=== PATIENT | male | born 1965 | race Caucasian/White ===

== ENCOUNTER 2022-10-25 10:51 | Outpatient (CLI) | payer MEDICARE, MEDICAID, SELFPAY ==
--- NOTE | 2022-10-25 11:35 | XR_ITS ---
WS: [id number] EXAMINATION: XR hip RT 2-3V wo/w pel* [id number] REASON FOR EXAM: PAIN IN R HIP COMPARISON: None ORDER DATE: 10/25/2022 11:54 AM TECHNIQUE: Frontal internal/external rotation views of the right hip were obtained. The entire pelvis was not included in the [id number] X-RAY FINDINGS: There are no fractures or dislocations. Normal motion with internal/external rotation is present. Minor right acetabular degenerative changes. XR/XR hip RT 2-3V wo/w pel* [id number] IMPRESSION: 1. No fractures or dislocations of the right hip. 2. Normal motion with internal/external rotation.
--- NOTE | 2022-10-25 11:35 | XR_ITS ---
WS: [id number] EXAMINATION: XR lumbar spine f/e only [id number] L-SPINE : 3 views REASON FOR EXAM: FALL/LOW BACK PAIN COMPARISON: None available. ORDER DATE: 10/25/2022 11:54 AM FINDINGS: The lumbar vertebral column is evaluated in flexion and extension lateral views as well as neutral po sition.. In the lumbar vertebra, there is no evidence of disc narrowing. There is minor anterior fabiano tebral narrowing of L1 possibly compression fracture age indeterminate. Aortoiliac vascular calcifica tions are present. There is perhaps 2 mm of anterior subluxation of L4 on L5 on flexion which reduces in neutral and extension. XR/XR lumbar spine f/e only [id number] IMPRESSION: Possible age-indeterminate minor compression of the superior endplate of L1. Mi ld anterolisthesis of L4 on L5
--- NOTE | 2022-10-25 11:35 | XR_ITS ---
WS: [id number] EXAMINATION: XR knee RT 3V* [id number] REASON FOR EXAM: PAIN IN R KNEE COMPARISON: None available. ORDER DATE: 10/25/2022 11:54 AM FINDINGS: There are marginal osteophytes associated with the tibial spines, and patella with mild medial and pa tellofemoral compartment narrowing. There is no sign of any acute fracture or dislocation. There is h azy thickening and indistinct patellar tendon and prepatellar soft tissue possibly some increased flu id or edema. XR/XR knee RT 3V* [id number] IMPRESSION: MEDIAL AND PATELLOFEMORAL COMPARTMENT NARROWING WITH OSTEOARTHRITIC CHANGES. CANNOT RULE OUT MILD PREPATELLAR BURSITIS.
== END 2022-10-25 10:52 | disposition home or self-care (01) ==
LOC: RAD 11:07
PROVIDERS: PCP Nurse Practitioner; Visit Provider Nurse Practitioner
DX: M54.50 Low back pain, unspecified (principal); M25.551 Pain in right hip; M25.561 Pain in right knee; W19.XXXA Unspecified fall, initial encounter; M17.11 Unilateral primary osteoarthritis, right knee
CPT/HCPCS: 72120; 73502; 73562

== ENCOUNTER → 2022-11-30 11:55 | Outpatient (BNVA) | payer MEDICARE, SELFPAY | PROVIDERS: PCP Nurse Practitioner; Visit Provider Internal Medicine Cardiovascular Disease | DX: I25.10 Atherosclerotic heart disease of native coronary artery without angina pectoris (principal); J44.9 Chronic obstructive pulmonary disease, unspecified; J43.9 Emphysema, unspecified; I10 Essential (primary) hypertension; E78.00 Pure hypercholesterolemia, unspecified | CPT/HCPCS: 36415; 82785; 86003; 93005; 99204 ==

== ENCOUNTER 2023-01-04 06:50 | Outpatient (CLI) | payer MEDICARE, MEDICAID, SELFPAY ==
[2023-01-04 07:22] VITALS: PULSE 85; RESP 20; O2SAT 93
[2023-01-04] MEDS: albuterol 2.5 mg/3 mL Neb INHALATION (07:25)
[2023-01-04 07:27] VITALS: PULSE 88
== END 2023-01-04 06:51 | disposition home or self-care (01) ==
LOC: RT 06:52
PROVIDERS: PCP Nurse Practitioner; Visit Provider Internal Medicine Pulmonary Disease
DX: J44.9 Chronic obstructive pulmonary disease, unspecified (principal)
CPT/HCPCS: 94060; 94618; 94726; 94729; J7613

== ENCOUNTER → 2023-02-16 10:57 | Outpatient (BNVA) | payer MEDICARE, MEDICAID, SELFPAY | PROVIDERS: PCP Nurse Practitioner; Visit Provider Internal Medicine Pulmonary Disease | DX: J44.9 Chronic obstructive pulmonary disease, unspecified (principal); J82.83 Eosinophilic asthma; I25.10 Atherosclerotic heart disease of native coronary artery without angina pectoris; Z12.2 Encounter for screening for malignant neoplasm of respiratory organs; F17.210 Nicotine dependence, cigarettes, uncomplicated | CPT/HCPCS: 99214 ==

== ENCOUNTER → 2023-04-04 11:55 | Outpatient (BNVA) | payer MEDICARE, MEDICAID, SELFPAY | PROVIDERS: PCP Nurse Practitioner; Visit Provider Nurse Practitioner | DX: S69.91XA Unspecified injury of right wrist, hand and finger(s), initial encounter (principal); W23.0XXA Caught, crushed, jammed, or pinched between moving objects, initial encounter | CPT/HCPCS: 73130 ==

== ENCOUNTER → 2023-06-28 13:38 | Outpatient (BNVA) | payer MEDICARE, SELFPAY | PROVIDERS: PCP Nurse Practitioner; Referring Provider Nurse Practitioner; Visit Provider Student in an Organized Health Care Education/Training Program | DX: M25.561 Pain in right knee (principal); M25.562 Pain in left knee; M17.0 Bilateral primary osteoarthritis of knee | CPT/HCPCS: 73560; 73565; 99204 ==

== ENCOUNTER 2023-07-26 07:39 | Outpatient (CLI) | payer MEDICARE, SELFPAY ==
--- NOTE | 2023-07-26 08:00 | CT_ITS ---
WS: [id number] CT LEFT KNEE, NONCONTRAST RICHA TECHNIQUE: Noncontrast CT of the LEFT knee to include the LEFT hip and ankle. CLINICAL INFORMATION: M17.0 - Bilateral primary osteoarthritis of knee COMPARISON: None. DLP: 1022.[address] scans at [facility] use at least one of these dose optimization techniques: automated e xposure control; mA and/or kV adjustment per patient size (includes targeted exams where dose is matc hed to clinical indication); or iterative reconstruction. FINDINGS: Postoperative changes LEFT EMILY. Osteopenia. Advanced degenerative arthritis LEFT knee. Prepatellar so ft tissue edema. Vascular calcification. Trace suprapatellar effusion. IMPRESSION: Images obtained for preoperative purposes.
== END 2023-07-26 07:40 | disposition home or self-care (01) ==
LOC: RAD 07:40
PROVIDERS: PCP Nurse Practitioner; Visit Provider Student in an Organized Health Care Education/Training Program
DX: M17.0 Bilateral primary osteoarthritis of knee (principal); Z01.818 Encounter for other preprocedural examination
CPT/HCPCS: 73700; 99214

== ENCOUNTER 2023-08-13 09:26 | Observation (INO) | payer MEDICARE, SELFPAY ==
[2023-08-13] VITALS (13 sets, daily range): BP systolic 97–136; BP diastolic 47–76; PULSE 62–89; RESP 16–18; TEMP 36.2–36.9; O2SAT 94–98; BMI 26.3
[2023-08-13] MEDS: sodium chloride 0.9% 500 ML IV (06:20)
[2023-08-13] MEDS: acetaminophen 1,000 MG/100 ML PIGGYBACK 400 MG IV ×3 (06:20→19:10)
[2023-08-13] MEDS: ketorolac 30 mg/mL INJ IVP (06:20)
[2023-08-13 06:30] LABS: Basophils # 0.1 10^3/uL (0.0-0.1); Basophils % 1.2 %; Eosinophils # 0.5 10^3/uL (0.0-0.8); Hematocrit 42.6 % (37-53); Lymphocytes % 28.8 %; Mean Corpuscular HGB Conc 33.1 g/dL (30-55); Mean Corpuscular Hemoglobin 30.7 pg (27-33); Mean Corpuscular Volume 92.8 fl (82-101); Mean Platelet Volume 9.6 fL (7.4-10.4); Monocytes # 0.7 10^3/uL (0.2-0.9); Monocytes % 9.8 %; Neutrophils # 3.63 10^3/uL (1.8-7.7); Neutrophils % 52.8 %; Nucleated Red Blood Cells % 0 %; Platelet Count 182 10^3/cmm (157-399); Red Blood Count 4.59 10^6/uL (3.85-5.65); Red Cell Distribution Width 13.5 % (12.1-15.1); White Blood Count 6.87 10^3/uL (3.29-11.43)
--- NOTE | 2023-08-13 06:46 | P.ANESASSM_ITS ---
Pre-Anesthetic Assessment Height/Weight: Height 1.88 m Weight 92.986 kg O2 Del Method Room Air 08/13/23 06:02 Preop Diagnosis: Left Knee DJD Operation Date: 08/13/23 07:00 Proposed Procedures p [place] Robot Total Knee Arthroplasty(Left) - Roge Cadena DO Familial anesthetic complications: None Was Beta Janak taken within 24 hours: N/A Was Clonidine taken within 24 hours: N/A Last intake: Intake Last Liquid Date 08/12/23 Last Liquid Time 20:30 Last Solid Date 08/12/23 Last Solid Time 20:30 Social Tobacco and No alcohol Exam alert, oriented x 3, clear to auscultation bilaterally and regular rate & rhythm Airway Mallampati: Class III Dentition: full Pulmonary Chronic Obstructive Pulmonary Disease CV/HEM Coronary Artery Disease (denies any episodes of Chest pain,SOB,syncope) and Hypertension Metabolic Hyperlipidemia Anesthetic Plan ASA status: 3 Anesthesia: Regional (specify below) Other: spinal + adductor Risk of > 500 ml blood loss (7ml/kg in children): Yes, adequate IV access and fluids planned Medications/Allergies Home Medications Medication Instructions Recorded Confirmed Last Taken Type albuterol sulfate 90 mcg/actuation 2 puff inhalation Q6H PRN 11/30/22 08/13/23 08/12/23 History aerosol inhaler Shortness Of Breath aspirin 81 mg tablet,delayed 81 mg PO DAILY 11/30/22 08/10/23 08/08/23 History release (Adult Low Dose Aspirin) cholecalciferol (vitamin D3) 125 125 mcg PO DAILY 11/30/22 08/13/23 08/12/23 History mcg (5,000 unit) capsule losartan 25 mg tablet 25 mg PO DAILY 11/30/22 08/13/23 08/12/23 History rosuvastatin 20 mg tablet 20 mg PO DAILY 11/30/22 08/13/23 08/12/23 History montelukast 10 mg tablet 10 mg PO DAILY #30 tabs 12/02/22 08/13/23 08/12/23 Rx (Singulair) fluticasone fur. 200 mcg-umeclid 1 inh inhalation DAILY #60 ea 07/10/23 08/13/23 08/13/23 Rx 62.5 mcg-vilant 25 mcg inhalat.powder (Trelegy Ellipta) Allergies Allergy/AdvReac Type Severity Reaction Status Date / Time bupropion [From Wellbutrin] AdvReac Unknown ADR-Dizzine Verified 08/10/23 11:03 ss meperidine [From Demerol] AdvReac Unknown Unknown Verified 08/10/23 11:03 Current Medications Generic Name Dose Route Start Last Admin Trade Name Freq PRN Reason Stop Dose Admin Sodium Chloride 500 mls @ 500 mls/hr 08/13/23 05:50 08/13/23 06:20 Sodium Chloride 0.9% IV 08/13/23 06:49 500 mls/hr ONCE ONE Administration [facility] Anesthesia Medical History Hypercholesterolemia HTN (hypertension) Spinal stenosis COPD (chronic obstructive pulmonary disease) Surgical History S/P knee surgery (~1977) History of ankle surgery (~1977) S/P carpal tunnel release (~1999) History of elbow surgery (~2000) S/P hip replacement (~2016) S/P coronary angiogram (~2013) Family History Father Myocardial infarct Family/Other Cancer Maternal side of family Social History Smoking and tobacco/nicotine status: current every day tobacco/nicotine user cigarettes Packs smoked per day: 1 Years cigarettes smoked: 35 [ Other cigarette details: Was smoking 4ppd] Alcohol intake: current Alcohol intake frequency: holidays/special occasions only Data Anesthesia 08/13/23 06:20 08/13/23 06:13 Short CBC 08/13/23 Range/Units 06:20 WBC 6.87 (3.29-11.43) 10^3/uL Hgb 14.10 (11.27-16.99) g/dL Hct 42.6 (37-53) % MCV 92.8 (82-101) fl Plt Count 182 (157-399) 10^3/cmm Neut % (Auto) 52.8 % Neut # (Auto) 3.63 (1.8-7.7) 10^3/uL Cardiac Studies: 2 No Data to Display
[2023-08-13 06:50] LABS: Blood Urea Nitrogen 15 mg/dL (8-23); Calcium 8.8 mg/dL (8.5-10.5); Carbon Dioxide 23 mmol/L (22-29); Chloride 103 mmol/L (98-107); Creatinine Clr Calc Pharmacy 192.2542; Glomerular Filtration Rate 169.6 mL/min (90-130); Glucose 114 mg/dL (65-115); Osmolality Calculated 282 mOsm/kg (285-295); Sodium 135 mmol/L (136-145)
--- NOTE | 2023-08-13 06:52 | W.PM.OPSFHP ---
Same Day Surgery H&P Indication for Procedure/HPI DATE OF PROCEDURE: August 13, 2023 CHIEF COMPLAINT/INDICATIONFOR SURGICAL PROCEDURE: Left knee degenerative joint disease PREOP DIAGNOSIS: Left Knee DJD PLANNED PROCEDURE: Operation Date: 08/13/23 07:00 Proposed Procedures p [place] Robot Total Knee Arthroplasty(Left) - Roge Cadena DO Medications/Allergies* Home Medications Medication Instructions Recorded Confirmed Type albuterol sulfate 90 mcg/actuation 2 puff inhalation Q6H PRN 11/30/22 08/13/23 History aerosol inhaler Shortness Of Breath aspirin 81 mg tablet,delayed 81 mg PO DAILY 11/30/22 08/10/23 History release (Adult Low Dose Aspirin) cholecalciferol (vitamin D3) 125 125 mcg PO DAILY 11/30/22 08/13/23 History mcg (5,000 unit) capsule losartan 25 mg tablet 25 mg PO DAILY 11/30/22 08/13/23 History rosuvastatin 20 mg tablet 20 mg PO DAILY 11/30/22 08/13/23 History Allergies/Adverse Reactions Allergy/AdvReac Type Severity Reaction Status Date / Time bupropion [From Wellbutrin] AdvReac Unknown ADR-Dizzine Verified 08/10/23 11:03 ss meperidine [From Demerol] AdvReac Unknown Unknown Verified 08/10/23 11:03 Pertinent History/Comorbid Conditions* Medical History (Updated 07/26/23 @ 13:30 by BLANCA Reilly) Hypercholesterolemia HTN (hypertension) Spinal stenosis COPD (chronic obstructive pulmonary disease) Surgical History (Updated 12/04/22 @ 16:42 by Annabel Waterman MD) S/P knee surgery (~1977) History of ankle surgery (~1977) S/P carpal tunnel release (~1999) History of elbow surgery (~2000) S/P hip replacement (~2016) S/P coronary angiogram (~2013) Family History (Updated 11/30/22 @ 08:56 by Margareth Bass RN) Father Myocardial infarct Father Cancer Family/Other Maternal side of family Social History Smoking and tobacco/nicotine status: current every day tobacco/nicotine user cigarettes Packs smoked per day: 1 Years cigarettes smoked: 35 [ Other cigarette details: Was smoking 4ppd] Alcohol intake: current Alcohol intake frequency: holidays/special occasions only Pertinent Exam Findings alert, oriented x 3, operative site marked and procedure specific exam findings Left knee demonstrates roughly 10 degree varus deformity. Refer to previous office visit on 06/28/2023 which included: Left Knee Exam: ROM 5 to 115 degrees Patellar crepitus with ROM Medial joint line tenderness to palpation Lateral joint line tenderness to palpation Mild-moderate joint effusion Negative Tiffany's, but pain noted Negative Seven's 10 degrees of Varus malalignment, correctable on exam Stable Varus and Valgus stress Gross motor sensory intact Recommendations Surgery/Procedure today Other Plans: Plan to proceed with left total knee arthroplasty [place] robotic assisted. Patient's had no change in his health from previous visit he is clear the preoperative clearance process. He has had no recent injections into his knee within the last 90 days. At this point he understands the ins and outs procedure the risk benefits complication alternatives of surgery. Understands risk of surgery he elects to proceed all questions been answered at this time. Coding Level of Care Code Acute Code for Sunny Fwmyles
[2023-08-13 06:57] LABS: Anion Gap 13.8 (5-19); Potassium 4.8 mmol/L (3.5-5.1)
--- NOTE | 2023-08-13 07:04 | ANES.PROC ---
Anesthesia Procedures Procedure/Date: 08/13/23 Nerve Block ^: Nerve Block 1: Main Anesthesia: spinal anesthesia block Time Out Performed: Yes Consent: requested by attending/covering physician, from patient, from other, risks and benefits reviewed and patient agrees to proceed Nerve block location: adductor canal (L) Anesthesia monitors applied: pulse oximetry, EKG and BP cuff Nerve block position: supine Anesthetic Used: ropivicaine 0.5% (30 ml) and with decadron (4 mg) Ultrasound used to: recognize landmarks and visualize and ID femerol nerve Nerve Stimulator Used?: No Interscalene/Femoral BLK: 4 stimuplex 21 g needle used for position and inplane approach, visualize local anesthetic spread and no vascular puncture identified Injection: neg aspiration of heme Patient Tolerated Procedure: well Complications: none
[2023-08-13] MEDS: ceFAZolin 2,000 MG in sodium chloride 0.9% (plus) 50 ML 100 MG IV ×3 (07:07→22:33)
--- NOTE | 2023-08-13 07:13 | XRR_ITS ---
PROCEDURE INFORMATION: Exam: XR Left Knee Exam date and time: 08/13/2023 8:51 AM Age: 58 years old Clinical indication: Device placement; Joint replacement hardware; Prior surgery; Surgery date: Post-operative (0-2 days); Surgery type: L tka; Additional info: Post L tka, do in pacu TECHNIQUE: Imaging protocol: Radiologic exam of the left knee. Views: 1 or 2 views. COMPARISON: 1. CT knee LT RICHA [id number] 07/26/2023 8:11 AM 2. CR XR knees AP WB w BI lmt ORTH 06/28/2023 1:40 PM FINDINGS: Bones/joints: Interval left knee arthroplasty. No additional displaced fracture nor dislocation seen. Soft tissues: Gas densities about knee. Vasculature: Vascular/arterial calcifications. XR/XR knee LT 1-2V [id number] IMPRESSION: Post left knee arthroplasty.
[2023-08-13] MEDS: tranexamic acid 1,000 mg/10mL SDV 1000 MG IV (07:25)
[2023-08-13] MEDS: tranexamic acid 1,000 mg/10mL SDV 1000 MG XX (08:01)
[2023-08-13] MEDS: ROPivacaine 0.2% Premix 100 mL 200 MG INTRA-ARTI (08:01)
[2023-08-13] MEDS: EPINEPHrine 1 mg/mL INJ XX (08:02)
[2023-08-13] MEDS: ketorolac 30 mg/mL INJ XX (08:02)
[2023-08-13] MEDS: vancomycin 1,000 MG SDV 1000 MG XX (08:03)
--- NOTE | 2023-08-13 09:33 | W.PM.BPON ---
Date of Procedure: 08/13/2023 Surgeon: Roge Cadena DO [place] Operator(s): LEDY Aguilar Procedure(s) performed: Left total knee arthroplasty?[place] robotic assisted Findings of the procedure(s): Left knee severe degenerative joint disease underwent left total knee arthroplasty without any issues or complications Estimated blood loss: 20 mL Specimen(s) removed: Tibia femur and patellar bone cuts removed Post-operative diagnosis: Left knee degenerative joint disease
--- NOTE | 2023-08-13 09:34 | PM.OP ---
Operative Report Date of procedure: August 13, 2023 Surgeon: Roge Cadena DO Sld Educational Aide: LEDY Aguilar Procedure: Preoperative diagnosis: Left knee degenerative joint disease Post-op diagnosis: Same Procedure done: Left total knee arthroplasty, cemented?robotic assisted [place] Implants: [place] triathlon size 7 femur CR cemented?left [place] triathlon size? 7 tibia universal baseplate cemented [place] triathlon asymmetric patella size 38 mm [place] triathlon polyethylene 9mm Surgeon: Roge Cadena DO Estimated blood?loss: 20 mL Tourniquet 73minutes IV fluids: 1200 mL Urine output: 600 mL Complications: None Condition: stable Disposition: floor Brief History: Patient is a 58-year-old male with with chronic?left knee degenerative joint disease.? Patient has been worked up in the outpatient setting in the orthopedic office at this point time through shared decision making given? [id number] arthritis as well as failed conservative treatment, and pt would?like to proceed with a?left total knee arthroplasty.? Through shared decision making elected to proceed with surgical intervention for?left total knee arthroplasty.? We talked about continued conservative treatment and surgical intervention as far as the risk benefits complications alternatives surgical and nonsurgical treatment options.? At this point time understanding patient risks with surgery he agrees to proceed with surgical intervention.? Once again? risk with surgery include but are not?limited to make it better make it worse blood clot, heart attack, stroke, on the table, infection, injury to nerves or vessels, persistent pain, arthrofibrosis, implant failure.? Understanding these risks patient agrees to proceed with surgical intervention consent was obtained in the office.? All questions answered. Procedure: Patient was seen and evaluated in the preoperative holding area.? Consent was reviewed and signed with patient with plan for?left total knee arthroplasty.? All questions answered.? Correct extremity marked.? Patient seen and evaluated by the anesthesia department and once cleared for surgery was taken back to the operative suite.? Patient was placed into a supine position on the OR table.? All bony prominences were well-padded.? Patient was appropriately secured to the bed.? Patient underwent anesthesia per the anesthesia department.? Patient received spinal anesthesia and? Cai catheter was placed.? A nonsterile tourniquet was applied to the?left thigh.? At this point in time a final timeout performed.? Patient received appropriate preoperative antibiotics and TXA. Next the?left?lower extremity was then prepped and draped in standard orthopedic fashion. Esmarch tourniquet was used exsanguinate the?left?lower extremity.? Tourniquet was insufflated to 250 mmHg. A patient had a previous medial curved incision over the patella from a previous surgery back in 1977. As result incorporated this previous incision and curved this to a anterior midline incision both proximally and distally created full-thickness skin flaps. Sharp scalpel excision through skin and subcutaneous tissue full-thickness skin flaps were made.? Fascia was elevated off of the extensor retinaculum was stable with medial parapatellar arthrotomy was then made.? The performed standard sequential releases..? Immediately on entry into the joint patient was found to have severe eburnated bone and tricompartmental arthritic changes noted.? With significant osteophyte formation.? Next the the patella was then stuffed and the knee was then flexed.?? Neil was placed superiorly around the anterior aspect of the femur this was freed of synovium and I subsequently then placed by 2 femur pins to establish my femur arrays for the [place] robot.? These were then placed bicortically and? femur array was then appropriately secured with appropriate visualization.? Next attention was turned towards the tibial rays.? These were then drilled sequentially bicortically in parallel fashion and intraincisional.? I then placed my guide as well as my tibial array on in place.? This was appropriately secured and had excellent visualization with the [place] robot.? Next the tibial checkpoint as well as femur checkpoint were then placed.? At this point time I then subsequently established my head center as well as my medial?lateral malleoli as well as my checkpoints.? Next utilizing standard [place] technology I then mapped out the appropriate points and confirmation points around the femur as well as the tibia in standard fashion.? Once this was then done I then removed all osteophytes in preparation for dynamic testing.? All osteophytes were removed as well as I removed the ACL and the PCL was excised due to its significant tearing and degeneration noted.? At this point time the knee was brought into full extension and we performed our standard evaluation of our gap balancing stressing his?ligaments and extension as well as flexion appropriate adjustments were made to have appropriate gap balancing in both flexion and extension.? This plan for final counts.? We get a preoperative plan evaluating our implants which was a size 7 femur and a size 7 tibia.? Next we brought in the [place] robot and sequentially made our femur cuts.? All excess bony cuts were then removed.? Finally we made our tibial cut.? Once this was done a standard PCL retractor was then placed into this position I excised the medial and?lateral meniscus.? The tibial cut was then subsequently removed all excess bony debris was removed.? I then utilized a?lamina missile facilities repairer and remove the posterior osteophytes.? At this point time sized the tibia and confirmed this was a size 7.? I utilized our blunt probe to establish rotation of tibial implant.? Once this was done I then placed my tibia size 7 trial in appropriate position and then subsequently placed tibial pins to hold this into place placed a size 9 mm poly as well as a size 7 femur which was appropriately impacted in place knee was then subsequently brought into extension. Trials were then assessed,? this was stable with varus valgus stress in extension as well as had symmetrical translation when brought into flexion demonstrating symmetrical gaps. I had excellent balance gaps in flexion and extension with varus and valgus stresses.? Patient was slightly tight medially and as result did a 18-gauge small fenestration of the MCL to allow for no increased loading pressure medially and this created excellent balance both medially and laterally. He was able to achieve full extension and greater than 120 on his range of motion. At this point I was satisfied with these implants these were then verified and opened on the back table size 7 tibia, size 7 femur,? size 9 mm polythickness.? We did confirm appropriate gap balancing and stresses as well as alignment utilizing? [place] and were satisfied with this plan.? ?At this point time with my trials in place I then towel clip the patella everted this made appropriate measurements subsequently utilizing freehand technique performed by patellar resurfacing this was confirmed to be appropriate resection and subsequently sized to be a 38mm asymmetric.? My drill peg guides were then clamped and appropriate position and appropriate position in the patella for appropriate tracking and parallel with the joint.? Pegs were drilled trial implant was placed and the knee was then subsequently ranged and found to have excellent patellar tracking.? Femur pegs were then drilled.? Satisfied with our tibial placement rotation I then utilized the keel punch and prepped the tibia.? At this point time all of our trial implants were removed.? All checkpoints as well as guidepins and arrays were removed and appropriate counts made.? The wound bed? was thoroughly irrigated and dried and prepped for cementation.? Cement was mixed on the back table.? Once cement was ready this was then covered onto the tibia and the tibial baseplate was then impacted and all excess cement was removed.? Next the polyethylene was then impacted into place on the tibial baseplate.? Next cement was placed onto the femur as well as under the femur implants and impacted in to place and all excess cement was extruded and removed.? Knee was taken into full extension? to clear all excess cement was removed.? Warm saline was placed over the joint.? I then towel clip patella and dried for cementation. cemented the patella into place.? This was all clamped and the cement was allowed to cure.? Thorough irrigation performed with pulse?lavage.? I then placed my periarticular injection while the cement was curing.? Once cured the knee was taken through range of motion and had excellent stability and gaps were balanced in flexion and extension.? Tourniquet was then deflated. hemostasis satisfactory with electrocautery.? Next I then subsequently closed the capsule with Ethibond suture as well as a running strata fix suture.? Knee was then taken through range of motion.? Next the skin was then closed in?layered fashion of running stratifix sutures of deep and subcutenous tissue and skin.? ?closed in flexion and Prineo glue was then placed over the incision this allowed to cure.? Incision was covered with юлия, with ABDs soft roll and Patricio wrap.? Patient was then awakened from anesthesia and taken to PACU in stable condition. Disposition: Patient taken to PACU in stable condition will be admitted to the floor for pain control PT/OT weight-bear as tolerated?left?lower extremity dressing changes as needed, DVT prophylaxis. Pain control. Patient will receive appropriate postoperative antibiotics. patient will be seen today by the internal medicine team for medical management.? Patient will follow up with the office in 2 weeks.? Patient understands agrees with current plan.? All questions answered.
--- NOTE | 2023-08-13 10:05 | PM.PACU ---
PACU note Narrative: Patient seen and examined in PACU was taken to PACU in stable condition recovering well spinal anesthesia still on affect unable assess motor or sensory secondary to spinal anesthesia. His compartments are soft compressible dressings on in place clean dry and intact he has distal pulses palpable 2+. Toes warm well-perfused brisk capillary refill less than 2 seconds Exam: awake Disposition: admitted
--- NOTE | 2023-08-13 10:30 | ANE.PACU2 ---
Inpatient post-anesthesia follow up: Airway intact: Yes Vital signs: Temperature 97.5 F Pulse Rate 63 Respiratory Rate 16 Blood Pressure 116/68 Pulse Oximetry 95 Oxygen Delivery Me thod Room Air Oxygen Flow Rate 6 Fraction of Inspir ed Oxygen Hydration adequate: Yes Nausea and vomiting: No Pain level: 1 Mental status: Baseline
[2023-08-13] MEDS: multivitamin therapeutic Tablet 1 TAB PO (11:52)
[2023-08-13] MEDS: iron polysaccharide complex 150 mg Capsule PO ×2 (11:52→17:13)
[2023-08-13] MEDS: chlorhexidine gluconate 0.12% Btl 473 mL 30 ML MUCOUS MEM ×4 (11:52→20:29)
[2023-08-13] MEDS: aspirin 325 mg EC Tablet PO ×2 (11:52→17:12)
[2023-08-13] MEDS: calcium carb-vit d 600mg/400unit 1 Tablet 1 EACH PO ×2 (11:52→17:12)
[2023-08-13] MEDS: docusate sodium 100 mg Capsule PO ×2 (11:52→17:12)
[2023-08-13] MEDS: mupirocin oint 22 gm 1 APPLIC NASAL ×2 (11:52→17:13)
[2023-08-13] MEDS: lactated ringers 1,000 ML 100 ML IV ×2 (12:30→20:29)
[2023-08-13] MEDS: tranexamic acid 1,000 MG/100 ML PREMIX 600 MG IV (14:51)
[2023-08-13] MEDS: TRAMadol 50 mg Tablet PO (14:51)
[2023-08-14 00:16] VITALS: BP 128/68; PULSE 83; RESP 17; TEMP 36.6; O2SAT 94
[2023-08-14] MEDS: TRAMadol 50 mg Tablet PO ×3 (01:38→13:11)
[2023-08-14] MEDS: acetaminophen 1,000 MG/100 ML PIGGYBACK 400 MG IV (02:02)
[2023-08-14 04:34] VITALS: BP 138/84; PULSE 94; RESP 18; TEMP 36.6; O2SAT 95
[2023-08-14 05:20] LABS: Basophils % 0.3 %; Eosinophils # 0.2 10^3/uL (0.0-0.8); Eosinophils % 1.4 %; Hematocrit 34.8 % (37-53); Lymphocytes # 2.5 10^3/uL (0.8-4.8); Lymphocytes % 16.7 %; Mean Corpuscular HGB Conc 32.8 g/dL (30-55); Mean Corpuscular Hemoglobin 30.6 pg (27-33); Mean Corpuscular Volume 93.3 fl (82-101); Monocytes # 1.5 10^3/uL (0.2-0.9); Monocytes % 10.1 %; Neutrophils # 10.54 10^3/uL (1.8-7.7); Neutrophils % 70.9 %; Nucleated Red Blood Cells % 0 %; Platelet Count 169 10^3/cmm (157-399); Red Blood Count 3.73 10^6/uL (3.85-5.65); Red Cell Distribution Width 13.2 % (12.1-15.1); White Blood Count 14.87 10^3/uL (3.29-11.43)
[2023-08-14 05:46] LABS: Anion Gap 13.2 (5-19); Blood Urea Nitrogen 14 mg/dL (8-23); Calcium 8.6 mg/dL (8.5-10.5); Carbon Dioxide 24 mmol/L (22-29); Chloride 106 mmol/L (98-107); Creatinine Clr Calc Pharmacy 159.3052; Glomerular Filtration Rate 137.4 mL/min (90-130); Glucose 112 mg/dL (65-115); Osmolality Calculated 289 mOsm/kg (285-295); Potassium 4.2 mmol/L (3.5-5.1); Sodium 139 mmol/L (136-145)
[2023-08-14] MEDS: lactated ringers 1,000 ML 100 ML IV (06:09)
[2023-08-14] MEDS: ceFAZolin 2,000 MG in sodium chloride 0.9% (plus) 50 ML 100 MG IV (06:09)
[2023-08-14 07:41] VITALS: BP 141/74; PULSE 91; RESP 17; TEMP 36.4; O2SAT 97
[2023-08-14] MEDS: iron polysaccharide complex 150 mg Capsule PO (07:45)
[2023-08-14] MEDS: calcium carb-vit d 600mg/400unit 1 Tablet 1 EACH PO (07:45)
[2023-08-14] MEDS: multivitamin therapeutic Tablet 1 TAB PO (07:45)
[2023-08-14] MEDS: aspirin 325 mg EC Tablet PO (07:45)
[2023-08-14] MEDS: docusate sodium 100 mg Capsule PO (07:45)
[2023-08-14] MEDS: chlorhexidine gluconate 0.12% Btl 473 mL 30 ML MUCOUS MEM (07:46)
[2023-08-14] MEDS: mupirocin oint 22 gm 1 APPLIC NASAL (07:46)
--- NOTE | 2023-08-14 08:59 | PC.CHAP ---
Pastoral Care Encounter/Spiritual Assessment Type of Contact [] Declined contact center specialist visit [] Patient/Family/Request visit [] Outpatient visit [] Follow-up visit [] Physician referral [] Code/Alert [] Routine visit [] Staff referral [] Actively dying [] Patient sleeping [] Family support [] [] Out of room [] Palliative care [] [x] Receiving care in room [] Pre-surgical visit [] Trauma [] Long length of stay [] ICU visit [] Other: Relational/Emotional Strength [] Patient feels connected with others/family/visitors/staff [] Distress [] Loneliness/isolation [] Abandonment Spirituality of Patient [] Person of Elaine [] Attends Holiness of their Elaine [] Believes in Prayer [] Reads Bible or Mormonism materials [] There are Spiritual issues to be addressed Rn Procedure Interventions [] Prayer [] Active listening [] Non-anxious presence [] Spiritual/emotional support [] Crisis/trauma care [] Spiritual counseling [] Bereavement support [] Provided bereavement packet [] Provided Bible/devotional materials [] Provided toy/stuffed animal, coloring book to patient or family member [] Provided Communion [] Anointing/[place] [] Salvation [] Completed spiritual assessment [] Other: Impact on Illness or Injury [] Angry [] Fearful [] Anxious [] Often cries [] Exhaustion [] Unable to work [] Unable to attend uatsdin [] Unable to walk/stand [] Unable to read [] Unable to drive [] Unable to eat/drink [] Unable to sleep [] Unable to be with family [] Patient intubated [] Other: Summary Time spent with patient
[2023-08-14 10:37] VITALS: PULSE 97; O2SAT 93
[2023-08-14 11:21] VITALS: BP 144/65; PULSE 72; RESP 16; TEMP 36.3; O2SAT 94
[2023-08-14 14:08] VITALS: BP 144/65; PULSE 72; RESP 16; TEMP 36.3; O2SAT 94
== END 2023-08-14 14:09 | disposition home or self-care (01) ==
LOC: MEDSURG 09:26
PROVIDERS: Admitting Provider Student in an Organized Health Care Education/Training Program; PCP Nurse Practitioner; Visit Provider Student in an Organized Health Care Education/Training Program
PROC: 8E0Y0CZ Robotic Assisted Procedure of Lower Extremity, Open Approach (ICD-10-PCS; CPT 27447; principal; 2023-08-13 07:00)
DX: M17.12 Unilateral primary osteoarthritis, left knee (principal); J44.9 Chronic obstructive pulmonary disease, unspecified; I25.10 Atherosclerotic heart disease of native coronary artery without angina pectoris; I10 Essential (primary) hypertension; E78.5 Hyperlipidemia, unspecified; Z79.82 Long term (current) use of aspirin; F17.210 Nicotine dependence, cigarettes, uncomplicated
CPT/HCPCS: 20985; 27447; 36415; 51702; 73560; 80048; 85025; 86850; 86900; 97110; 97116; 97161; 97165; C1776; G0378; J0131; J0171; J0690; J1100; J1885; J2371; J2704; J2795; J3370; J7040; J7120

== ENCOUNTER 2023-08-14 14:07 | Outpatient (CLI) | payer MEDICARE, SELFPAY ==
--- NOTE | 2023-08-14 14:30 | CT_ITS ---
WS: [id number] LDCT LUNG CANCER SCREENING HISTORY: follow up imaging TECHNIQUE: Axial imaging performed from the apices to 1 cm below the costophrenic angles. Coronal and sagittal reformats are submitted with axial MIP series. All CT scans at [facility] use at least one of these dose optimization techniques: automated exposure control; mA and/or kV adjustment per patient size (includes targeted exams where dose is matched to clinical indication); or iterativ e reconstruction. DLP: 80.51 mGy.cm DIvol: Mean CTDIvol: 1.60 (mGy) COMPARISON: None available. Diagnostic quality: Satisfactory Lungs: Lungs are hyperexpanded. Numerous centrilobular emphysematous nodules are identified. There is numerous benign healed granulomas. Mild dependent changes posteriorly. No mass or nodule. Heart: Normal size heart with no pericardial effusion.. Moderate coronary artery calcifications. Other findings: Atherosclerotic plaque within the thoracic aorta. Normal size pulmonary artery. No ad renal mass. IMPRESSION: CT/CT lung screening [id number] LUNG-RADS: 1-Negative FOLLOW UP: 12 Month: Continue annual screening with LDCT OTHER FINDINGS (S MODIFIER): None.
== END 2023-08-14 14:08 | disposition home or self-care (01) ==
LOC: RAD 14:07
PROVIDERS: PCP Nurse Practitioner; Visit Provider Internal Medicine Pulmonary Disease
DX: J44.9 Chronic obstructive pulmonary disease, unspecified (principal); Z12.2 Encounter for screening for malignant neoplasm of respiratory organs
CPT/HCPCS: 71271

== ENCOUNTER → 2023-09-04 07:41 | Outpatient (BNVA) | payer MEDICARE, SELFPAY | PROVIDERS: PCP Nurse Practitioner; Visit Provider Physician Assistant | DX: Z96.652 Presence of left artificial knee joint (principal) | CPT/HCPCS: 73560; 73565; 99024 ==

== ENCOUNTER 2023-10-02 14:11 | Emergency (ER) | payer MEDICARE, SELFPAY ==
--- NOTE | 2023-10-02 14:14 | ECG_ITS ---
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 Measurements Intervals [place] Rate: 94 P: 75 SC: 154 QRS: 78 QRSD: 82 T: 79 QT: 349 QTc: 438 Interpretive Statements SINUS RHYTHM Compared to ECG 11/30/2022 12:02:52 No significant changes Electronically Signed On 10-02-2023 16:48:15 CDT by Chet Cage M.D. [email or web address]/[id number] f
[2023-10-02 14:16] VITALS: BP 139/80; PULSE 96; RESP 18; TEMP 36.9; O2SAT 96; BMI 24.7
--- NOTE | 2023-10-02 14:42 | XR_ITS ---
WS: [id number] Exam: XR chest 1V portable [id number] Date/Time of Exam: 10/02/2023 2:44 PM Reason For Exam: sob No priors. The lungs are fully expanded and clear. Normal cardiomediastinal silhouette and regional bony element s. Several calcified granulomas noted in both lung mcknight. XR/XR chest 1V portable [id number] IMPRESSION: 1. No acute cardiopulmonary finding.
--- NOTE | 2023-10-02 14:44 | ED_ITS ---
HPI - Weakness 2 General: Chief complaint: Weakness Stated complaint: Heart issues--sent by PCP Time Seen by Provider: 10/02/23 14:25 Source: patient Mode of arrival: ambulatory Limitations: no limitations History of Present Illness: Patient is a nice 58-year-old male who presents to ED today at the request of his primary care provider for further evaluation of symptoms over the past few days. Patient states on Sunday (4 days ago) he states he woke up not feeling well . Patient states he cannot really elaborate on specific symptoms other than I just did not feel good . 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 He states the following day he still did not feel improved. He reported nausea and chills stating he was covered up in blankets with his dog on his lap and still freezing. He never had any vomiting or documented fevers. No abdominal pains. Patient states he tried to do manual labor Sunday and Sunday morning but after 2 hours or so he felt weak and dizzy thus stayed inside and rested. He states he slept most of the day yesterday. Patient does have COPD and continues to smoke daily. He states he has felt more so short of breath and has used his inhalers over the past 3 days more than usual. Patient is status post knee replacement by Dr. Cadena approximately 3 to 4 weeks ago. He states he feels like his knee has been recovering well since surgery. Patient states his PCP was concerned that his symptoms could be related to his heart. He has reportedly had previous angiograms and echocardiograms as well as stress test that were reportedly normal. Patient has never had any chest pain or palpitations over the past several days. No syncopal episodes. He denies lower extremity swelling or weight gain. No muscle cramping or reported muscle weakness. MD Complaint: lack of energy Onset (ago): day(s) Duration: constant Location: generalized Migration: none Severity: moderate Relieving factors: none Exacerbating factors: exertion Associated symptoms: Reports chills and nausea; Denies chest pain, dysuria, fever(s), headache(s), syncope or vomiting Review of Systems 2 Const: Reports: chills, fatigue and malaise; Denies: fever(s) Eyes: Denies: change in vision, blurry vision or photophobia Card: Reports: dyspnea on exertion; Denies: chest pain, palpitations, irregular heart rhythm, edema, swelling of feet/ankles, lightheadedness, syncope, pre-syncope, orthopnea, leg pain with exertion or acrocyanosis Resp: Reports: dyspnea; Denies: productive cough, wheezing, pain on inspiration or hemoptysis GI: Reports: nausea; Denies: abdominal pain, vomiting, heartburn or diarrhea : Denies: flank pain, difficulty urinating or dysuria Musc: Denies: neck pain, back pain, extremity pain, extremity swelling or joint pain Skin/Breast: Denies: rash Neuro: Reports: dizziness; Denies: headache(s), numbness in extremities, weakness in extremities, sensory changes, lack of coordination, difficulty walking, frequent falls, vertigo, behavioral changes, Slurred speech present, difficulty communicating thoughts or seizure-like activity PFSH ED 2 PFSH: Medical History Hypercholesterolemia HTN (hypertension) Spinal stenosis COPD (chronic obstructive pulmonary disease) Surgical History S/P knee surgery (~1977) History of ankle surgery (~1977) S/P carpal tunnel release (~1999) History of elbow surgery (~2000) S/P hip replacement (~2016) S/P coronary angiogram (~2013) Family History Father Myocardial infarct Family/Other Cancer Maternal side of family Social History Smoking and tobacco/nicotine status: current every day tobacco/nicotine user cigarettes Packs smoked per day: 1 Years cigarettes smoked: 35 [ Other cigarette details: Was smoking 4ppd] Alcohol intake: current Alcohol intake frequency: holidays/special occasions only Physical Exam 2 Const: COMMON NORMALS: no acute distress, average body habitus, patient oriented x3, no limitations, healthy appearing, alert and well nourished O RIENTATION/CONSCIOUSNESS: Yes awake, Yes oriented to person, Yes oriented to place and Yes oriented to time OTHER: pt appears slightly winded during speaking/obtaining history HENMT: COMMON NORMALS: normocephalic and atraumatic HEAD & SCALP: normal to inspection, normocephalic and atraumatic FACE & SINUS: normal facial exam Eye: GENERAL EYE: appearance normal, both eyes and all related structures Neck/C-Spine: COMMON NORMALS: full ROM, no lymphadenopathy, supple and no meningeal signs Chest: COMMONS NORMALS: normal inspection of the chest Resp: COMMON NORMALS: normal respiratory effort and clear to auscultation bilaterally AUSCULTATION: clear to auscultation bilaterally Cardio: COMMON NORMALS: regular rate and regular rhythm RATE: regular rate RHYTHM: regular rhythm GI: COMMON NORMALS: Normal to inspection, nondistended, normoactive bowel sounds present, Soft to palpation, non-tender, No hepatosplenomegaly present and no masses PALPATION: Yes Soft to palpation and Yes No hepatosplenomegaly present : COMMON NORMALS: Yes no CVA tenderness BLADDER/KIDNEY EXAM: Yes no CVA tenderness Back/Pelvis: COMMON NORMALS: no CVA tenderness and thoracic and lumbar spine normal to inspection Extremity: COMMON NORMALS: normal to inspection, no clubbing, cyanosis or edema, no calf tenderness and no pedal edema GENERAL: Yes normal exam except as noted Neuro: SHARMIN COMA SCALE: document GCS findings Sharmin coma scale eye opening: Spontaneous Sharmin coma scale verbal response: Orientated Sharmin coma scale motor response: Obey commands [place] coma scale total score: 15 COMMON NORMALS: patient oriented x3, moves all extremities, no focal motor deficits and no sensory deficits noted SENSORIUM/ORIENTATION: Yes alert, Yes oriented to person, Yes oriented to place and Yes oriented to time MENINGEAL SIGNS: Yes no meningeal signs Skin: COMMON NORMALS: no rashes or lesions noted GENERAL SKIN EXAM: no rashes or lesions noted Course 2 Vital Signs: Vital signs: Vital Signs Temperature 98.4 F 10/02/23 14:16 Pulse Rate 86 10/02/23 17:38 Respiratory Rate 18 10/02/23 17:38 Blood Pressure 158/86 10/02/23 17:38 Pulse Oximetry 93 10/02/23 17:38 Oxygen Delivery Me thod Room Air 10/02/23 17:02 MDM - Weakness Medical Decision Making Patient is a very nice 58-year-old male here for complaints of not feeling well over the past 4 days or so. He has had some exercise intolerance which is abnormal for him. He has been using his COPD inhalers more frequently. He arrives with stable vital signs in no acute distress. Blood work overall unremarkable apart from an elevated D-dimer. This was ordered secondary to his symptoms and recent knee surgery. This fortunately was negative. His troponins are unremarkable. EKG is nonischemic. CXR showing no acute cardiopulmonary findings. A CTA showed no PE but did have mild opacities in bilateral lower lobes. This could be atelectasis but infection/edema were not excluded. He does have moderate emphysema. Will go ahead and place patient on antibiotics and steroids for pneumonia/COPD exacerbation coverage. He did mention recent tick bites thus tick panel was ordered and currently pending. Recommend follow- up with his PCP later this week. Patient is agreeable to this plan. Return to ED precautions given. Medical Records I reviewed the patient's medical records. Lab Data I reviewed the patient's lab results. 10/02/23 14:52 10/02/23 14:52 Radiology Impressions Chest X-Ray 10/02/23 14:42 IMPRESSION: 1. No acute cardiopulmonary finding. Chest CTA 10/02/23 15:40 IMPRESSION: 1. No pulmonary embolism. 2. Mild dependent opacity in both lower lobes, greater on the right. Probable subsegmental atelectasis. Infection and edema are not excluded. 3. Moderate centrilobular emphysema. 4. Incidental findings above. COMMENTS: The presence of pulmonary emphysema on CT is an independent risk factor for lung cancer. In the absence of a history or active diagnosis of lung cancer, it is recommended that this patient with emphysema be evaluated for enrollment in a low dose CT lung cancer screening program. Laboratory Results WBC 9.26 10^3/uL (3.29-11.43) 10/02/23 14:52 RBC 4.51 10^6/uL (3.85-5.65) 10/02/23 14:52 Hgb 13.70 g/dL (11.27-16.99) 10/02/23 14:52 Hct 42.2 % (37-53) 10/02/23 14:52 MCV 93.6 fl (82-101) 10/02/23 14:52 MCH 30.4 pg (27-33) 10/02/23 14:52 MCHC 32.5 g/dL (30-55) 10/02/23 14:52 RDW 13.6 % (12.1-15.1) 10/02/23 14:52 Plt Count 219 10^3/cmm (157-399) 10/02/23 14:52 MPV 9.7 fL (7.4-10.4) 10/02/23 14:52 Neut % (Auto) 56.7 % 10/02/23 14:52 Lymph % (Auto) 26.7 % 10/02/23 14:52 [place] % (Auto) 9.7 % 10/02/23 14:52 Eos % (Auto) 5.4 % 10/02/23 14:52 Baso % (Auto) 0.9 % 10/02/23 14:52 Neut # (Auto) 5.25 10^3/uL (1.8-7.7) 10/02/23 14:52 Lymph # (Auto) 2.5 10^3/uL (0.8-4.8) 10/02/23 14:52 [place] # (Auto) 0.9 10^3/uL (0.2-0.9) 10/02/23 14:52 Eos # (Auto) 0.5 10^3/uL (0.0-0.8) 10/02/23 14:52 Baso # (Auto) 0.1 10^3/uL (0.0-0.1) 10/02/23 14:52 Nucleated RBC % (auto) 0 % 10/02/23 14:52 Nucleated RBCs # 0.0 /100WBC 10/02/23 14:52 D-Dimer 1.12 ug/mLFEU (0-0.59) H 10/02/23 14:52 Sodium 140 mmol/L (136-145) 10/02/23 14:52 Potassium 4.6 mmol/L (3.5-5.1) 10/02/23 14:52 Chloride 102 mmol/L (98-107) 10/02/23 14:52 Carbon Dioxide 26 mmol/L (22-29) 10/02/23 14:52 Anion Gap 16.6 (5-19) 10/02/23 14:52 BUN 22 mg/dL (8-23) 10/02/23 14:52 Creatinine 0.7 mg/dL (0.7-1.2) 10/02/23 14:52 GFR Calculation 115.0 mL/min (90-130) 10/02/23 14:52 Glucose 79 mg/dL (65-115) 10/02/23 14:52 Calculated Osmolality 292 mOsm/kg (285-295) 10/02/23 14:52 Calcium 9.4 mg/dL (8.5-10.5) 10/02/23 14:52 Total Bilirubin 0.2 mg/dL (0.15-1.2) 10/02/23 14:52 AST 16 U/L (0-40) 10/02/23 14:52 ALT 17 U/L (0-41) 10/02/23 14:52 Alkaline Phosphatase 91 U/L (40-130) 10/02/23 14:52 Troponin T Baseline 9 ng/L (0-15) 10/02/23 14:52 Troponin T 120 Minute 7.60 ng/L (0-15) 10/02/23 17:00 Delta Troponin T -1.40 ABS# (0-10) L 10/02/23 17:00 NT-Pro-B Natriuret Pep 43 pg/mL (0-125) 10/02/23 14:52 Total Protein 6.9 g/dL (6.6-8.7) 10/02/23 14:52 Albumin 4.3 g/dL (3.5-5.2) 10/02/23 14:52 Globulin 2.6 g/dL (1.3-4.6) 10/02/23 14:52 Urine Color Yellow (Yellow) 10/02/23 15:20 Urine Appearance Clear (CLEAR) 10/02/23 15:20 Urine pH 5 (5-7) 10/02/23 15:20 Ur Specific [place] 1.025 (1.005-1.030) 10/02/23 15:20 Urine Protein Neg (Negative) 10/02/23 15:20 Urine Glucose (UA) Norm (Normal) 10/02/23 15:20 Urine Ketones Negative (Negative) 10/02/23 15:20 Urine Blood 2+ (Negative) H 10/02/23 15:20 Urine Nitrate Negative (Negative) 10/02/23 15:20 Urine Bilirubin Neg (Negative) 10/02/23 15:20 Urine Urobilinogen Norm mg/dL (Negative) 10/02/23 15:20 Ur Leukocyte Esterase Negative (Negative) 10/02/23 15:20 Urine RBC 0-4 /hpf (0-2) H 10/02/23 15:20 Urine WBC 0-4 /hpf (0-5) H 10/02/23 15:20 Ur Squamous Epith Cells None /hpf (0-5) 10/02/23 15:20 Amorphous Sediment Not Reportable 10/02/23 15:20 Urine Bacteria None /hpf (NONE) 10/02/23 15:20 Hyaline Casts Rare /lpf 10/02/23 15:20 Urine Mucus None /hpf 10/02/23 15:20 Adenovirus (PCR) Not detected (NOT DETECT) 10/02/23 15:20 C. pneumoniae DNA (PCR) Not detected (NOT DETECT) 10/02/23 15:20 Coronavirus 229E (PCR) Not detected (NOT DETECT) 10/02/23 15:20 Human Metapneumovir PCR Not detected (NOT DETECT) 10/02/23 15:20 Influenza A (H1) PCR Not detected (NOT DETECT) 10/02/23 15:20 Influ A (H1/09) PCR Not detected (NOT DETECT) 10/02/23 15:20 Influenza A (H3) PCR Not detected (NOT DETECT) 10/02/23 15:20 Influenza Type A (PCR) Not detected (NOT DETECT) 10/02/23 15:20 Influenza Type B (PCR) Not detected (NOT DETECT) 10/02/23 15:20 M. pneumoniae (PCR) Not detected (NOT DETECT) 10/02/23 15:20 Parainfluenza 1 (PCR) Not detected (NOT DETECT) 10/02/23 15:20 Parainfluenza 2 (PCR) Not detected (NOT DETECT) 10/02/23 15:20 Parainfluenza 3 (PCR) Not detected (NOT DETECT) 10/02/23 15:20 Parainfluenza 4 (PCR) Not detected (NOT DETECT) 10/02/23 15:20 RSV Type A (PCR) Not detected (NOT DETECT) 10/02/23 15:20 RSV Type B (PCR) Not detected (NOT DETECT) 10/02/23 15:20 Entero/Rhino (PCR) Not detected (NOT DETECT) 10/02/23 15:20 SARS-CoV-2 (PCR) Not detected (NOT DETECT) 10/02/23 15:20 All radiology interpretation(s) finalized by discharge Discharge Plan Discharge Patient Disposition: Home Clinical Impression: Feeling unwell Dyspnea Qualifiers: Dyspnea type: unspecified Qualified Code(s): R06.00 - Dyspnea, unspecified Condition: Stable Prescriptions: New levofloxacin 500 mg tablet 500 mg PO DAILY 7 Days Qty: 7 0RF prednisone 10 mg tablet 10 mg PO DAILY 7 Days Qty: 27 0RF Rx Instructions: 6 tabs on days 1-2, 5 tabs on days 3, 4 tabs on day 4, 3 tabs on day 5, 2 tabs on day 6, 1 tab on day 7 No Action cholecalciferol (vitamin D3) 125 mcg (5,000 unit) capsule 125 mcg PO DAILY aspirin [Adult Low Dose Aspirin] 81 mg tablet,delayed release (DR/EC) 81 mg PO DAILY Hold Instructions: Resume on 08/28/23. Hold while taking full dose aspirin twice daily losartan 25 mg tablet 25 mg PO DAILY rosuvastatin 20 mg tablet 20 mg PO DAILY albuterol sulfate 90 mcg/actuation HFA aerosol inhaler 2 puff inhalation Q6H PRN (Reason: Shortness Of Breath) montelukast [Singulair] 10 mg tablet 10 mg PO DAILY Qty: 30 3RF Trelegy Ellipta 200-62.5-25 mcg blister with device 1 inh inhalation DAILY Qty: 60 6RF hydrocodone-acetaminophen 7.5-325 mg tablet 1 tab PO Q6H PRN (Reason: pain) 5 Days Qty: 20 0RF Discharge Orders: Discharge ED (Routine); Ordered 10/02/23 Ordered By: Fanny Andrew Referrals: Iris Enciso FNP [Primary Care Provider] - Coding Level of Care Code 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
[2023-10-02 14:56] VITALS: BP 162/86; PULSE 93; RESP 17; O2SAT 94
[2023-10-02 15:08] LABS: Basophils # 0.1 10^3/uL (0.0-0.1); Basophils % 0.9 %; Eosinophils # 0.5 10^3/uL (0.0-0.8); Eosinophils % 5.4 %; Hematocrit 42.2 % (37-53); Lymphocytes # 2.5 10^3/uL (0.8-4.8); Lymphocytes % 26.7 %; Mean Corpuscular HGB Conc 32.5 g/dL (30-55); Mean Corpuscular Hemoglobin 30.4 pg (27-33); Mean Corpuscular Volume 93.6 fl (82-101); Mean Platelet Volume 9.7 fL (7.4-10.4); Monocytes # 0.9 10^3/uL (0.2-0.9); Monocytes % 9.7 %; Neutrophils # 5.25 10^3/uL (1.8-7.7); Neutrophils % 56.7 %; Nucleated Red Blood Cells % 0 %; Platelet Count 219 10^3/cmm (157-399); Red Blood Count 4.51 10^6/uL (3.85-5.65); Red Cell Distribution Width 13.6 % (12.1-15.1); White Blood Count 9.26 10^3/uL (3.29-11.43)
[2023-10-02 15:27] LABS: D Dimer 1.12 ug/mLFEU (0-0.59); Troponin(5th) Baseline 9 ng/L (0-15)
[2023-10-02 15:32] LABS: Add Urine Microscopic? YES; Bilirubin Urine Neg (Negative); Blood Urine 2+ (Negative); Glucose Urine UA Norm (Normal); Ketones Urine Negative (Negative); Leukocyte Esterase Urine Negative (Negative); Nitrate Urine Negative (Negative); Protein Urine Neg (Negative); Specific Gravity, Urine 1.025 (1.005-1.030); Urine Appearance Clear (CLEAR); Urine Color Yellow (Yellow); Urobilinogen Urine Norm (Negative); pH Urine 5 (5-7)
[2023-10-02 15:35] LABS: Alanine Aminotransferase 17 U/L (0-41); Albumin Level 4.3 g/dL (3.5-5.2); Alkaline Phosphatase 91 U/L (40-130); Anion Gap 16.6 (5-19); Aspartate Amino Transferase 16 U/L (0-40); Blood Urea Nitrogen 22 mg/dL (8-23); Calcium 9.4 mg/dL (8.5-10.5); Carbon Dioxide 26 mmol/L (22-29); Chloride 102 mmol/L (98-107); Creatinine Clr Calc Pharmacy 133.8686; Globulin 2.6 g/dL (1.3-4.6); Glucose 79 mg/dL (65-115); NT Pro B Type Natriuretic Pept 43 pg/mL (0-125); Osmolality Calculated 292 mOsm/kg (285-295); Potassium 4.6 mmol/L (3.5-5.1); Sodium 140 mmol/L (136-145); Total Bilirubin 0.2 mg/dL (0.15-1.2); Total Protein 6.9 g/dL (6.6-8.7)
--- NOTE | 2023-10-02 15:40 | CTR_ITS ---
PROCEDURE INFORMATION: Exam: CTA Chest With Contrast Exam date and time: 10/02/2023 3:50 PM Age: 58 years old Clinical indication: Dyspnea; Additional info: SOB, fatigue, recent surgery, exercise intolerance TECHNIQUE: Imaging protocol: Computed tomographic angiography of the chest with contrast. Exam focused on the arteries. 3D rendering (Not supervised by radiologist): MIP and/or 3D reconstructed images were created by the technologist. Radiation optimization: All CT scans at this facility use at least one of these dose optimization techniques: automated exposure control; mA and/or kV adjustment per patient size (includes targeted exams where dose is matched to clinical indication); or iterative reconstruction. Contrast material: OMNI 350; Contrast volume: 80 ml; Contrast route: INTRAVENOUS (IV); COMPARISON: CT lung screening [id number] 08/14/2023 2:46 PM RADIATION DOSE METRICS: Total DLP (mGy-cm): 457.24 FINDINGS: Pulmonary arteries: The pulmonary arteries are adequately opacified for evaluation to the subsegmental level. There is no filling defect to suggest embolism. Aorta: The aorta is unremarkable. There is no aneurysm. Lungs: There is moderate upper lung predominant centrilobular emphysema. There is dependent ground-glass opacity in both lower lobes, greater on the right. There are multiple calcified granulomas in the right upper lobe. No bronchial wall thickening or bronchiectasis. Pleural spaces: There is no pleural effusion or pneumothorax. Heart: Heart size is normal. There is no pericardial effusion. Lymph nodes: Mildly prominent nonspecific partially calcified right hilar lymph nodes. Adrenal glands: The adrenal glands are hypertrophic bilaterally. Intraperitoneal space: Visible structures in the upper abdomen are unremarkable. Bones/joints: Bones are unremarkable. Soft tissues: The extrathoracic soft tissues are unremarkable. CT/CT angio chest PE protcl [id number] IMPRESSION: 1. No pulmonary embolism. 2. Mild dependent opacity in both lower lobes, greater on the right. Probable subsegmental atelectasis. Infection and edema are not excluded. 3. Moderate centrilobular emphysema. 4. Incidental findings above. COMMENTS: The presence of pulmonary emphysema on CT is an independent risk factor for lung cancer. In the absence of a history or active diagnosis of lung cancer, it is recommended that this patient with emphysema be evaluated for enrollment in a low dose CT lung cancer screening program.
[2023-10-02 15:42] VITALS: PULSE 90; RESP 26; O2SAT 92
[2023-10-02 15:59] LABS: Add Urine Culture? No; Hyaline Casts Urine RARE /lpf; RBC Urine 0-4 /hpf (0-2); WBC Urine 0-4 /hpf (0-5)
[2023-10-02] MEDS: iohexol 350 mg/mL 500 mL Btl (per mL) IV (16:06)
--- NOTE | 2023-10-02 16:42 | ECG_ITS ---
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 Measurements Intervals [place] Rate: 85 P: 80 MN: 168 QRS: 84 QRSD: 85 T: 85 QT: 373 QTc: 446 Interpretive Statements SINUS RHYTHM Compared to ECG 10/02/2023 14:14:53 No significant changes Electronically Signed On 10-02-2023 16:51:11 CDT by Chet Cage M.D. [email or web address] Viewingashtabula county medical centerConnect Financial [email or web address]/store/[id number]
[2023-10-02 17:02] VITALS: BP 140/96; PULSE 87; RESP 18; O2SAT 92
[2023-10-02 17:09] LABS: Adenovirus Not Detected (NOT DETECT); Chlamydia Pneumoniae Not Detected (NOT DETECT); Coronavirus 229E,HKU1,NL63,OC4 Not Detected (NOT DETECT); Human Metapneumovirus Not Detected (NOT DETECT); Human Rhinovirus/Enterovirus Not Detected (NOT DETECT); Influenza A Not Detected (NOT DETECT); Influenza A H1 Not Detected (NOT DETECT); Influenza A H1-2009 Not Detected (NOT DETECT); Influenza A H3 Not Detected (NOT DETECT); Influenza B Not Detected (NOT DETECT); Mycoplasma Pneumoniae Not Detected (NOT DETECT); Parainfluenza Virus Type 1 Not Detected (NOT DETECT); Parainfluenza Virus Type 2 Not Detected (NOT DETECT); Parainfluenza Virus Type 3 Not Detected (NOT DETECT); Parainfluenza Virus Type 4 Not Detected (NOT DETECT); Respiratory Syncytial Virus A Not Detected (NOT DETECT); Respiratory Syncytial Virus B Not Detected (NOT DETECT); SARS-COV-2 Not Detected (NOT DETECT)
[2023-10-02 17:38] VITALS: BP 158/86; PULSE 86; RESP 18; O2SAT 93
[2023-10-03 13:19] LABS: Lyme AB Screen <0.90 index
[2023-10-06 16:29] LABS: RMSF IGG NOT DETECTED; RMSF IGM NOT DETECTED
== END 2023-10-02 17:37 | disposition home or self-care (01) ==
PROVIDERS: Emergency Provider Physician Assistant; PCP Nurse Practitioner
DX: R06.00 Dyspnea, unspecified (principal); Z79.82 Long term (current) use of aspirin; Z11.52 Encounter for screening for COVID-19; I10 Essential (primary) hypertension; J44.9 Chronic obstructive pulmonary disease, unspecified; F17.210 Nicotine dependence, cigarettes, uncomplicated
CPT/HCPCS: 71045; 71275; 80053; 81001; 83880; 84484; 85025; 85378; 86618; 86666; 86757; 87486; 87581; 87633; 93005; 99285; Q9967

== ENCOUNTER 2023-10-12 14:25 | Emergency (ER) | payer MEDICARE, SELFPAY ==
[2023-10-12 14:28] VITALS: BP 120/77; PULSE 91; RESP 20; TEMP 36.4; O2SAT 98; BMI 25.0
--- NOTE | 2023-10-12 14:37 | CTR_ITS ---
PROCEDURE INFORMATION: Exam: CT Abdomen And Pelvis With Contrast Exam date and time: 10/12/2023 3:36 PM Age: 58 years old Clinical indication: Abdominal pain; Localized; Left lower quadrant (llq); Prior surgery; Surgery date: 6+ months; Surgery type: Hip, appy; Patient HX: Sharp llq pain that radiates to back x 2 days; Additional info: Abd pain TECHNIQUE: Imaging protocol: Computed tomography of the abdomen and pelvis with contrast. Radiation optimization: All CT scans at this facility use at least one of these dose optimization techniques: automated exposure control; mA and/or kV adjustment per patient size (includes targeted exams where dose is matched to clinical indication); or iterative reconstruction. Contrast material: OMNI 350; Contrast volume: 100 ml; Contrast route: INTRAVENOUS (IV); COMPARISON: CR XR hip RT 2-3V wo/w pel* [id number] 10/25/2022 11:53 AM RADIATION DOSE METRICS: Total DLP (mGy-cm): 604.9 FINDINGS: Lungs: Lung bases are clear. No pleural effusion. Liver: Normal. No mass. Gallbladder and bile ducts: Normal. No calcified stones. No ductal dilation. Pancreas: Normal. No ductal dilation. Spleen: Normal. No splenomegaly. Adrenal glands: Normal. No mass. Kidneys and ureters: Normal. No hydronephrosis. Stomach and bowel: Unremarkable. No obstruction. No mucosal thickening. Appendix: No evidence of appendicitis. Intraperitoneal space: Unremarkable. No free air. No significant fluid collection. Vasculature: Unremarkable. No abdominal aortic aneurysm. Lymph nodes: Unremarkable. No enlarged lymph nodes. Urinary bladder: Unremarkable as visualized. Reproductive: Unremarkable as visualized. Bones/joints: A left hip prosthesis is well seated and well aligned. Soft tissues: Unremarkable. CT/CT abdomen pelvis w con* [id number] IMPRESSION: No acute findings.
--- NOTE | 2023-10-12 14:42 | ED_ITS ---
HPI - Abdominal Pain 2 General: Chief Complaint: Abdominal Pain Stated Complaint: Stomach pain left side Time Seen by Provider: 10/12/23 14:36 Source: patient Mode of arrival: ambulatory Limitations: no limitations History of Present Illness: 58-year-old male states been having left lower quadrant pain over the last 2 days. He states it is worse and it is very sharp in nature rates an 8 out of 10 it is worse with movement and palpation. Had some nausea denies any vomiting denies any fevers. Associated Symptoms: Denies chills, diarrhea, fever(s), nausea and vomiting Review of Systems 2 Const: Denies: fever(s), chills, body aches or change in appetite ENMT: Denies: throat pain or dental pain Card: Denies: chest pain Resp: Denies: dyspnea GI: Reports: abdominal pain; Denies: nausea, vomiting or diarrhea Musc: Denies: neck pain or back pain Skin/Breast: Denies: rash Neuro: Denies: headache(s) PFSH ED 2 PFSH: Medical History Hypercholesterolemia HTN (hypertension) Spinal stenosis COPD (chronic obstructive pulmonary disease) Surgical History S/P knee surgery (~1977) History of ankle surgery (~1977) S/P carpal tunnel release (~1999) History of elbow surgery (~2000) S/P hip replacement (~2016) S/P coronary angiogram (~2013) Family History Father Myocardial infarct Family/Other Cancer Maternal side of family Social History Smoking and tobacco/nicotine status: current every day tobacco/nicotine user cigarettes Packs smoked per day: 1 Years cigarettes smoked: 35 [ Other cigarette details: Was smoking 4ppd] Alcohol intake: current Alcohol intake frequency: holidays/special occasions only Physical Exam 2 Const: COMMON NORMALS: no acute distress, patient oriented x3 and healthy appearing HENMT: COMMON NORMALS: normocephalic and atraumatic HEAD & SCALP: n ormocephalic and atraumatic Neck/C-Spine: COMMON NORMALS: full ROM and supple Chest: COMMONS NORMALS: normal inspection of the chest and normal palpation of entire chest wall Resp: COMMON NORMALS: normal respiratory effort Cardio: COMMON NORMALS: regular rate, regular rhythm and No murmurs present (Cardio) RATE: regular rate RHYTHM: regular rhythm GI: COMMON NORMALS: Normal to inspection, nondistended, normoactive bowel sounds present, Soft to palpation and no masses PALPATION: Yes Soft to palpation and Yes Tenderness to palpation present (GI) Details: LLQ Extremity: COMMON NORMALS: normal to inspection and full ROM Neuro: COMMON NORMALS: patient oriented x3, moves all extremities and no focal motor deficits Psych: COMMON NORMALS: mental status grossly normal, Normal thought process present and cooperative THOUGHT PROCESS: Normal thought process present Skin: COMMON NORMALS: no rashes or lesions noted and no wounds GENERAL SKIN EXAM: no rashes or lesions noted Course 2 Vital Signs: Vital signs: Vital Signs Temperature 97.5 F L 10/12/23 14:28 Pulse Rate 93 10/12/23 14:48 Respiratory Rate 16 10/12/23 15:30 Blood Pressure 126/84 10/12/23 14:48 Pulse Oximetry 98 10/12/23 15:30 Oxygen Delivery Me thod Room Air 10/12/23 14:28 MDM - Abdominal Pain Medical Decision Making Patient presents here with abdominal pain imaging blood works all normal he feels improved here he is stable for discharge we will prescribe him pain medicine he is follow-up with his PCP and return if worsening he understands agrees to plan Medical Records I reviewed the patient's medical records. Lab Data I reviewed the patient's lab results. 10/12/23 14:45 10/12/23 14:45 Labs/Radiology: Radiology Impressions Abdomen/Pelvis CT 10/12/23 14:37 IMPRESSION: No acute findings. Laboratory Results WBC 9.68 10^3/uL (3.29-11.43) 10/12/23 14:45 RBC 4.76 10^6/uL (3.85-5.65) 10/12/23 14:45 Hgb 14.80 g/dL (11.27-16.99) 10/12/23 14:45 Hct 43.3 % (37-53) 10/12/23 14:45 MCV 91.0 fl (82-101) 10/12/23 14:45 MCH 31.1 pg (27-33) 10/12/23 14:45 MCHC 34.2 g/dL (30-55) 10/12/23 14:45 RDW 13.3 % (12.1-15.1) 10/12/23 14:45 Plt Count 205 10^3/cmm (157-399) 10/12/23 14:45 MPV 9.5 fL (7.4-10.4) 10/12/23 14:45 Neut % (Auto) 58.1 % 10/12/23 14:45 Lymph % (Auto) 24.5 % 10/12/23 14:45 Imperial % (Auto) 11.7 % 10/12/23 14:45 Eos % (Auto) 4.3 % 10/12/23 14:45 Baso % (Auto) 0.6 % 10/12/23 14:45 Neut # (Auto) 5.62 10^3/uL (1.8-7.7) 10/12/23 14:45 Lymph # (Auto) 2.4 10^3/uL (0.8-4.8) 10/12/23 14:45 Imperial # (Auto) 1.1 10^3/uL (0.2-0.9) H 10/12/23 14:45 Eos # (Auto) 0.4 10^3/uL (0.0-0.8) 10/12/23 14:45 Baso # (Auto) 0.1 10^3/uL (0.0-0.1) 10/12/23 14:45 Nucleated RBC % (auto) 0 % 10/12/23 14:45 Nucleated RBCs # 0.0 /100WBC 10/12/23 14:45 Sodium 134 mmol/L (136-145) L 10/12/23 14:45 Potassium 4.2 mmol/L (3.5-5.1) 10/12/23 14:45 Chloride 100 mmol/L (98-107) 10/12/23 14:45 Carbon Dioxide 22 mmol/L (22-29) 10/12/23 14:45 Anion Gap 16.2 (5-19) 10/12/23 14:45 BUN 14 mg/dL (8-23) 10/12/23 14:45 Creatinine 0.6 mg/dL (0.7-1.2) L 10/12/23 14:45 GFR Calculation 137.4 mL/min (90-130) H 10/12/23 14:45 Glucose 107 mg/dL (65-115) 10/12/23 14:45 Calculated Osmolality 279 mOsm/kg (285-295) L 10/12/23 14:45 Lactic Acid 1.5 mmol/L (0.5-2.2) 10/12/23 14:45 Calcium 9.4 mg/dL (8.5-10.5) 10/12/23 14:45 Total Bilirubin 0.4 mg/dL (0.15-1.2) 10/12/23 14:45 AST 12 U/L (0-40) 10/12/23 14:45 ALT 15 U/L (0-41) 10/12/23 14:45 Alkaline Phosphatase 90 U/L (40-130) 10/12/23 14:45 Total Protein 6.7 g/dL (6.6-8.7) 10/12/23 14:45 Albumin 4.1 g/dL (3.5-5.2) 10/12/23 14:45 Globulin 2.6 g/dL (1.3-4.6) 10/12/23 14:45 Lipase 20 U/L (13-60) 10/12/23 14:45 Urine Color Yellow (Yellow) 10/12/23 15:24 Urine Appearance Slightly cloudy (CLEAR) 10/12/23 15:24 Urine pH 7 (5-7) 10/12/23 15:24 Ur Specific Mcclure 1.010 (1.005-1.030) 10/12/23 15:24 Urine Protein Neg (Negative) 10/12/23 15:24 Urine Glucose (UA) Norm (Normal) 10/12/23 15:24 Urine Ketones Negative (Negative) 10/12/23 15:24 Urine Blood Neg (Negative) 10/12/23 15:24 Urine Nitrate Negative (Negative) 10/12/23 15:24 Urine Bilirubin Neg (Negative) 10/12/23 15:24 Urine Urobilinogen Norm mg/dL (Negative) 10/12/23 15:24 Ur Leukocyte Esterase Negative (Negative) 10/12/23 15:24 Urine RBC None /hpf (0-2) 10/12/23 15:24 Urine WBC None /hpf (0-5) 10/12/23 15:24 Ur Squamous Epith Cells None /hpf (0-5) 10/12/23 15:24 Amorphous Sediment 2+ /hpf 10/12/23 15:24 Urine Bacteria 1+ /hpf (NONE) H 10/12/23 15:24 All radiology interpretation(s) finalized by discharge Discharge Plan Discharge Patient Disposition: Home Clinical Impression: Abdominal pain Condition: Stable Prescriptions: New hydrocodone-acetaminophen 5-325 mg tablet 1 tab PO Q6H PRN (Reason: pain) Qty: 14 0RF ondansetron 4 mg tablet,disintegrating 4 mg PO Q6H PRN (Reason: nausea and vomiting) Qty: 14 0RF No Action cholecalciferol (vitamin D3) 125 mcg (5,000 unit) capsule 125 mcg PO DAILY aspirin [Adult Low Dose Aspirin] 81 mg tablet,delayed release (DR/EC) 81 mg PO DAILY Hold Instructions: Resume on 08/28/23. Hold while taking full dose aspirin twice daily losartan 25 mg tablet 25 mg PO DAILY rosuvastatin 20 mg tablet 20 mg PO DAILY albuterol sulfate 90 mcg/actuation HFA aerosol inhaler 2 puff inhalation Q6H PRN (Reason: Shortness Of Breath) montelukast [Singulair] 10 mg tablet 10 mg PO DAILY Qty: 30 3RF Trelegy Ellipta 200-62.5-25 mcg blister with device 1 inh inhalation DAILY Qty: 60 6RF hydrocodone-acetaminophen 7.5-325 mg tablet 1 tab PO Q6H PRN (Reason: pain) 5 Days Qty: 20 0RF Discharge Orders: Discharge ED (Routine); Ordered 10/12/23 Ordered By: Miguel Hunter Referrals: Iris Enciso, REGISTERED DENTAL ASSISTANT RDA [Primary Care Provider] - 4-7 days Discharge Diet: Advance as tolerated Discharge Activity: Resume usual activity Patient Instructions: Abdominal Pain (ED), Opioid Safety Coding Level of Care Code ED [employer] for Sunny Reed
[2023-10-12 14:48] VITALS: BP 126/84; PULSE 93; RESP 21; O2SAT 96
[2023-10-12 14:51] VITALS: RESP 20; O2SAT 98
[2023-10-12] MEDS: morphine 4 mg/mL SDV 1 mL IVP (14:51)
[2023-10-12 14:52] LABS: Basophils # 0.1 10^3/uL (0.0-0.1); Basophils % 0.6 %; Eosinophils # 0.4 10^3/uL (0.0-0.8); Eosinophils % 4.3 %; Hematocrit 43.3 % (37-53); Lymphocytes # 2.4 10^3/uL (0.8-4.8); Lymphocytes % 24.5 %; Mean Corpuscular HGB Conc 34.2 g/dL (30-55); Mean Corpuscular Hemoglobin 31.1 pg (27-33); Mean Platelet Volume 9.5 fL (7.4-10.4); Monocytes # 1.1 10^3/uL (0.2-0.9); Monocytes % 11.7 %; Neutrophils # 5.62 10^3/uL (1.8-7.7); Neutrophils % 58.1 %; Nucleated Red Blood Cells % 0 %; Platelet Count 205 10^3/cmm (157-399); Red Blood Count 4.76 10^6/uL (3.85-5.65); Red Cell Distribution Width 13.3 % (12.1-15.1); White Blood Count 9.68 10^3/uL (3.29-11.43)
[2023-10-12] MEDS: ondansetron 2 mg/ML SDV 2 mL 4 MG IVP (14:52)
[2023-10-12 15:22] LABS: Alanine Aminotransferase 15 U/L (0-41); Albumin Level 4.1 g/dL (3.5-5.2); Alkaline Phosphatase 90 U/L (40-130); Anion Gap 16.2 (5-19); Aspartate Amino Transferase 12 U/L (0-40); Blood Urea Nitrogen 14 mg/dL (8-23); Calcium 9.4 mg/dL (8.5-10.5); Carbon Dioxide 22 mmol/L (22-29); Chloride 100 mmol/L (98-107); Creatinine Clr Calc Pharmacy 156.8526; Globulin 2.6 g/dL (1.3-4.6); Glomerular Filtration Rate 137.4 mL/min (90-130); Glucose 107 mg/dL (65-115); Lipase 20 U/L (13-60); Osmolality Calculated 279 mOsm/kg (285-295); Potassium 4.2 mmol/L (3.5-5.1); Sodium 134 mmol/L (136-145); Total Bilirubin 0.4 mg/dL (0.15-1.2); Total Protein 6.7 g/dL (6.6-8.7)
[2023-10-12 15:24] LABS: Lactic Sepsis W/Reflex 1.5 mmol/L (0.5-2.2)
[2023-10-12 15:30] VITALS: RESP 16; O2SAT 98
[2023-10-12] MEDS: HYDROmorphone 1 mg/mL INJ 1 mL IVP (15:30)
[2023-10-12] MEDS: iohexol 350 mg/mL 500 mL Btl (per mL) IV (15:37)
[2023-10-12 16:13] LABS: Urine Color Yellow (Yellow)
[2023-10-12 16:14] LABS: Add Urine Microscopic? YES; Bilirubin Urine Neg (Negative); Blood Urine Neg (Negative); Glucose Urine UA Norm (Normal); Ketones Urine Negative (Negative); Leukocyte Esterase Urine Negative (Negative); Nitrate Urine Negative (Negative); Protein Urine Neg (Negative); Urine Appearance Slightly Cloudy (CLEAR); Urobilinogen Urine Norm (Negative); pH Urine 7 (5-7)
[2023-10-12 16:16] LABS: Add Urine Culture? No; Amorphous Sediment Urine 2+ /hpf; Bacteria Urine 1+ /hpf
[2023-10-12 16:26] VITALS: BP 127/82; PULSE 82; RESP 16; O2SAT 98
== END 2023-10-12 16:27 | disposition home or self-care (01) ==
PROVIDERS: Emergency Provider Emergency Medicine; PCP Nurse Practitioner
DX: R10.32 Left lower quadrant pain (principal); I10 Essential (primary) hypertension; J44.9 Chronic obstructive pulmonary disease, unspecified; F17.210 Nicotine dependence, cigarettes, uncomplicated
CPT/HCPCS: 74177; 80053; 81001; 83605; 83690; 85025; 96374; 96375; 99285; J1170; J2270; J2405; Q9967

== ENCOUNTER → 2023-10-26 12:57 | Outpatient (BNVA) | payer MEDICARE, SELFPAY | PROVIDERS: PCP Nurse Practitioner; Visit Provider Physician Assistant | DX: Z96.652 Presence of left artificial knee joint (principal); M17.11 Unilateral primary osteoarthritis, right knee | CPT/HCPCS: 73560; 73565; 99214 ==

== ENCOUNTER → 2023-11-21 08:59 | Outpatient (BNVA) | payer MEDICARE, SELFPAY | PROVIDERS: PCP Nurse Practitioner; Visit Provider Family Medicine | DX: Z01.818 Encounter for other preprocedural examination (principal) | CPT/HCPCS: 81003 ==

== ENCOUNTER 2024-01-15 13:48 | Outpatient (CLI) | payer MEDICARE, SELFPAY ==
[2024-01-15 14:12] LABS: Basophils # 0.1 10^3/uL (0.0-0.1); Basophils % 0.7 %; Eosinophils # 0.4 10^3/uL (0.0-0.8); Eosinophils % 4.5 %; Hematocrit 40.5 % (37-53); Lymphocytes # 2.8 10^3/uL (0.8-4.8); Lymphocytes % 31.6 %; Mean Corpuscular HGB Conc 33.8 g/dL (30-55); Mean Corpuscular Hemoglobin 30.9 pg (27-33); Mean Corpuscular Volume 91.4 fl (82-101); Mean Platelet Volume 9.4 fL (7.4-10.4); Monocytes # 0.9 10^3/uL (0.2-0.9); Monocytes % 10.1 %; Neutrophils # 4.57 10^3/uL (1.8-7.7); Neutrophils % 52.5 %; Nucleated Red Blood Cells % 0 %; Platelet Count 215 10^3/cmm (157-399); Red Blood Count 4.43 10^6/uL (3.85-5.65)
[2024-01-15 14:28] LABS: Alanine Aminotransferase 19 U/L (0-41); Albumin Level 4.4 g/dL (3.5-5.2); Alkaline Phosphatase 73 U/L (40-130); Anion Gap 17.4 (5-19); Aspartate Amino Transferase 18 U/L (0-40); Blood Urea Nitrogen 16 mg/dL (8-23); Calcium 8.8 mg/dL (8.5-10.5); Carbon Dioxide 23 mmol/L (22-29); Chloride 104 mmol/L (98-107); Globulin 2.4 g/dL (1.3-4.6); Glomerular Filtration Rate 137.4 mL/min (90-130); Glucose 95 mg/dL (65-115); Osmolality Calculated 291 mOsm/kg (285-295); Potassium 4.4 mmol/L (3.5-5.1); Sodium 140 mmol/L (136-145); Total Bilirubin 0.3 mg/dL (0.15-1.2); Total Protein 6.8 g/dL (6.6-8.7)
[2024-01-15 14:28] LABS: Bilirubin Urine Negative (Negative); Blood Urine 1+ (Negative); Glucose Urine UA Negative (Normal); Ketones Urine Negative (Negative); Leukocyte Esterase Urine Negative (Negative); Nitrate Urine Negative (Negative); Protein Urine Negative (Negative); Urine Appearance Clear (CLEAR); Urine Color Yellow (Yellow); pH Urine 5.5 (5-7)
[2024-01-15 14:30] LABS: Add Urine Microscopic? YES; Bacteria Urine None Seen /hpf; Squamous Epithelial Cell Urine 0-5 /hpf (0-5); WBC Urine 0-5 /hpf (0-5)
--- NOTE | 2024-01-15 14:30 | CT_ITS ---
WS: [email or web address] CT RIGHT KNEE, NONCONTRAST [facility] TECHNIQUE: Noncontrast CT of the RIGHT knee to include the RIGHT hip and ankle. CLINICAL INFORMATION: M17.11 - Unilateral primary osteoarthritis, right knee COMPARISON: None. DLP: 931.[address] scans at [facility] use at least one of these dose optimization techniques: automated e xposure control; mA and/or kV adjustment per patient size (includes targeted exams where dose is matc hed to clinical indication); or iterative reconstruction. FINDINGS: Prior postoperative changes LEFT EMILY. Advanced degenerative arthritis RIGHT knee. Small suprapatellar effusion. Degenerative arthritis sacr oiliac joints. Normal visualized sigmoid colon. CT/CT knee RT RICHA [id number] IMPRESSION: Images obtained for preoperative purposes.
[2024-01-15 14:43] LABS: Add Urine Culture? No
== END 2024-01-15 13:49 | disposition home or self-care (01) ==
LOC: RAD 13:49
PROVIDERS: PCP Nurse Practitioner; Visit Provider Student in an Organized Health Care Education/Training Program
DX: Z01.818 Encounter for other preprocedural examination (principal); M17.11 Unilateral primary osteoarthritis, right knee; Z96.642 Presence of left artificial hip joint
CPT/HCPCS: 36415; 73700; 80053; 81001; 85025

== ENCOUNTER 2024-02-04 08:32 | Day surgery (SDC) | payer MEDICARE, SELFPAY ==
[2024-02-04 09:01] VITALS: BMI 24.3
[2024-02-04] MEDS: acetaminophen 1,000 MG/100 ML PIGGYBACK 400 MG IV (09:12)
[2024-02-04 09:14] VITALS: BP 178/91
[2024-02-04] MEDS: scopolamine 1.5 Patch 1 PATCH TRANSDERMA (09:14)
[2024-02-04] MEDS: ketorolac 30 mg/mL INJ IVP (09:14)
--- NOTE | 2024-02-04 09:40 | ANES.PREANE2 ---
Pre-Anesthetic Assessment Height/Weight: Height 6 ft 2 in Weight 190 lb BP O2 Del Method 178/91 Room Air 02/04/24 09:14 02/04/24 09:04 Preop Diagnosis: Arthritis Operation Date: 02/04/24 11:15 Proposed Procedures p [place] [employer] Total Knee Arthroplasty(Right) - Roge Cadena, DO Was Beta Janak taken within 24 hours: N/A Was Clonidine taken within 24 hours: N/A Last intake: Intake Last Liquid Date 02/03/24 Last Liquid Time 23:00 Last Solid Date 02/03/24 Last Solid Time 22:00 Social Tobacco and No alcohol Exam alert, oriented x 3 and regular rate & rhythm Diminished breath sounds bilaterally Airway Submandibular: within normal limits Cervical ROM: within normal limits Mallampati: Class III Dentition: false Anesthetic Plan ASA status: 3 Anesthesia: MAC and Regional (specify below) Other: No prior issues with anesthesia NPO since midnight Patient had a knee arthroplasty in August under spinal anesthetic without issues COPD, controlled with inhalers Current smoker Hypertension on losartan. Preop BP 178/91 EKG showing sinus rhythm Labs pending METs greater than 4 Medications/Allergies Home Medications Medication Instructions Recorded Confirmed Last Taken Type albuterol sulfate 90 mcg/actuation 2 puff inhalation Q6H PRN 11/30/22 01/31/24 01/31/24 History aerosol inhaler Shortness Of Breath aspirin 81 mg tablet,delayed 81 mg PO DAILY 11/30/22 01/31/24 01/28/24 History release (Adult Low Dose Aspirin) cholecalciferol (vitamin D3) 125 125 mcg PO DAILY 11/30/22 01/31/24 01/28/24 History mcg (5,000 unit) capsule losartan 25 mg tablet 25 mg PO DAILY 11/30/22 01/31/24 01/31/24 History rosuvastatin 20 mg tablet 20 mg PO DAILY 11/30/22 01/31/24 01/30/24 History montelukast 10 mg tablet 10 mg PO DAILY #30 tabs 12/02/22 01/31/24 01/31/24 Rx (Singulair) fluticasone fur. 200 mcg-umeclid 1 inh inhalation DAILY #60 ea 07/10/23 01/31/24 02/04/24 Rx 62.5 mcg-vilant 25 mcg inhalat.powder (Trelegy Ellipta) Allergies Allergy/AdvReac Type Severity Reaction Status Date / Time oxycodone Allergy ADR-Vomitin Verified 01/31/24 11:11 g bupropion [From Wellbutrin] AdvReac Unknown ADR-Dizzine Verified 01/18/24 11:11 ss meperidine [From Demerol] AdvReac Unknown Unknown Verified 01/31/24 11:05 [facility] Anesthesia Medical History Hypercholesterolemia HTN (hypertension) Spinal stenosis COPD (chronic obstructive pulmonary disease) Surgical History S/P knee surgery (~1977) History of ankle surgery (~1977) S/P carpal tunnel release (~1999) History of elbow surgery (~2000) S/P hip replacement (~2016) S/P coronary angiogram (~2013) Family History Father Myocardial infarct Family/Other Cancer Maternal side of family Social History Smoking and tobacco/nicotine status: current every day tobacco/nicotine user cigarettes Packs smoked per day: 1 Years cigarettes smoked: 35 [ Other cigarette details: Was smoking 4ppd] Alcohol intake: current Alcohol intake frequency: holidays/special occasions only Data Anesthesia 02/04/24 09:15 02/04/24 09:15 Cardiac Studies: No Data to Display
[2024-02-04] MEDS: lactated ringers 500 ML IV (09:43)
[2024-02-04] MEDS: sodium chloride 0.9% 1,000 ML 30 ML IV (09:48)
[2024-02-04 09:50] LABS: Basophils # 0.1 10^3/uL (0.0-0.1); Basophils % 0.8 %; Eosinophils # 0.3 10^3/uL (0.0-0.8); Eosinophils % 4.4 %; Hematocrit 44.6 % (37-53); Lymphocytes # 2.1 10^3/uL (0.8-4.8); Lymphocytes % 27.6 %; Mean Corpuscular HGB Conc 33.2 g/dL (30-55); Mean Corpuscular Hemoglobin 30.6 pg (27-33); Mean Corpuscular Volume 92.1 fl (82-101); Mean Platelet Volume 9.9 fL (7.4-10.4); Monocytes # 0.8 10^3/uL (0.2-0.9); Monocytes % 10.2 %; Neutrophils # 4.25 10^3/uL (1.8-7.7); Neutrophils % 56.5 %; Nucleated Red Blood Cells % 0 %; Platelet Count 213 10^3/cmm (157-399); Red Blood Count 4.84 10^6/uL (3.85-5.65); Red Cell Distribution Width 13.6 % (12.1-15.1); White Blood Count 7.53 10^3/uL (3.29-11.43)
[2024-02-04 10:04] LABS: Anion Gap 12.3 (5-19); Blood Urea Nitrogen 17 mg/dL (8-23); Calcium 9.1 mg/dL (8.5-10.5); Carbon Dioxide 25 mmol/L (22-29); Chloride 103 mmol/L (98-107); Glomerular Filtration Rate 169.6 mL/min (90-130); Glucose 105 mg/dL (65-115); Osmolality Calculated 284 mOsm/kg (285-295); Potassium 4.3 mmol/L (3.5-5.1); Sodium 136 mmol/L (136-145)
[2024-02-04 10:13] VITALS: BP 178/91; PULSE 94; RESP 18; TEMP 36.9; O2SAT 94
[2024-02-04 10:26] LABS: Creatinine Clr Calc Pharmacy 186.2071
--- NOTE | 2024-02-04 11:23 | PM.MISC ---
Miscellaneous Note Purpose of Documentation: Orthopedic note update: Patient was seen and examined this morning he is cleared by the anesthesia team ready proceed with a right total knee arthroplasty is went through the preoperative clearance process and ready to proceed with surgical intervention. Unfortunately we are having technical issues with our [place] robotic system and unfortunately not passing to certify and proceed with this case as a result I updated the patient and informed him unfortunately that we would not be able to proceed with his total joint replacement today due to having technical difficulties with the robotic system. I offered potentially Sunday or next week Sunday if this can all the rectified and infected by that point in time he said ultimately he has multiple things needing to do at work and he rather just wait until the spring to get this taken care of. I understood and apologized for his inconvenience which she understand and at this point in time we will go ahead and pencil him in on our schedule in middle to end of July next year and we will plan on seeing him roughly early part of June to get everything cleared prior to proceeding with total knee arthroplasty. Patient understands and agrees with current plan. All questions answered. Roge Cadena, DO Orthopedic surgery
--- NOTE | 2024-02-04 12:44 | PC.NURSE ---
Patient discharged prior to surgery due to faulty equipment. dc time @ [id number]
== END 2024-02-04 11:30 | disposition home or self-care (01) ==
PROVIDERS: Physician Assistant; PCP Nurse Practitioner; Visit Provider Student in an Organized Health Care Education/Training Program
PROC: 8E0Y0CZ Robotic Assisted Procedure of Lower Extremity, Open Approach (ICD-10-PCS; CPT 27447; principal; 2024-02-04 11:15)
DX: M17.11 Unilateral primary osteoarthritis, right knee (principal); Z53.8 Procedure and treatment not carried out for other reasons; J44.9 Chronic obstructive pulmonary disease, unspecified; I10 Essential (primary) hypertension; Z79.82 Long term (current) use of aspirin; F17.210 Nicotine dependence, cigarettes, uncomplicated
CPT/HCPCS: 36415; 80048; 85025; 86850; 86900; J0131; J1885; J2704; J7030; J7120

== ENCOUNTER 2024-07-16 11:41 | Outpatient (CLI) | payer MEDICARE, SELFPAY ==
--- NOTE | 2024-07-16 11:51 | XR_ITS ---
WS: [email or web address] Cervical spine, 4 views, 07/16/2024 Clinical Data: PAIN Comparison: None. Findings: No compression fractures are seen. The disc heights are normal. There is no prevertebral soft tissue swelling. The odontoid is unremarkable. The soft tissues of the neck show calcifications in the region of the carotid bifurcations. The lung apices are unremarkable. XR/XR cervical spine 3V* [id number] Impression: Negative cervical spine.
--- NOTE | 2024-07-16 11:52 | XR_ITS ---
WS: [email or web address] Lumbar spine, 6 views including AP, both obliques, lateral in flexion, extension and neutral position, 07/16/2024 Clinical Data: LOW BACK PAIN Comparison: Lumbar spine, 10/25/2022 Findings: No new compression fractures are seen. There is slight loss of height of the L1 vertebral body unchanged. There is minimal spurring of the anterior aspect of all the lumbar vertebral bodies. There is 0.3 cm of anterior subluxation of L4 on L5. No disc space narrowing is seen. The transverse processes and SI joints are normal. On flexion and extension there is no subluxation. There is calcification in the wall of the abdominal aorta but no aneurysm. There is a left hip arthroplasty. XR/XR lumbar spine 6V w f/e [id number] Impression: 1. Minimal loss of height of the L1 vertebral body which remain stable. 2. Unchanged anterior subluxation of 0.3 cm of L4 and L5. 3. Minimal anterior osteoarthritis. 4. No instability on flexion or extension.
[2024-07-16 12:52] VITALS: PULSE 87; RESP 18; O2SAT 96
== END 2024-07-16 11:42 | disposition home or self-care (01) ==
LOC: RT 11:47
PROVIDERS: PCP Nurse Practitioner; Visit Provider Nurse Practitioner
DX: S33.140D Subluxation of L4/L5 lumbar vertebra, subsequent encounter (principal); X58.XXXD Exposure to other specified factors, subsequent encounter; R29.898 Other symptoms and signs involving the musculoskeletal system; J44.9 Chronic obstructive pulmonary disease, unspecified; R94.2 Abnormal results of pulmonary function studies; I70.0 Atherosclerosis of aorta; Z96.642 Presence of left artificial hip joint; I65.23 Occlusion and stenosis of bilateral carotid arteries
CPT/HCPCS: 72040; 72114; 94060; 94726; 94729; J7613

== ENCOUNTER 2024-10-08 10:34 | Outpatient (CLI) | payer OTHER, SELFPAY ==
--- NOTE | 2024-10-08 10:41 | XR_ITS ---
WS: [email or web address] XR shoulder RT min 2V* [id number] REASON FOR EXAM: R HAND WEAKNESS/L HAND WEAKNESS/HAND PARESTHESIA FINDINGS: No fracture or focal bone lesion. Moderate narrowing of the acromioclavicular joint space with mild subchondral sclerosis and osteophytosis. Mild lateral downward slant orientation of the acromial process. The glenohumeral joint space is not well demonstrated. Likely there is mild narrowing. There is mild subchondral sclerosis of the glenoid. There is mild osteophytosis of the humeral head. Mild to moderate sclerosis and cystic change in the greater biceps tuberosity. XR/XR shoulder RT min 2V* [id number] IMPRESSION: Moderate osteoarthritis of the acromioclavicular joint. At least mild osteoarthritis of the glenohumeral joint. Mild to moderate rotator cuff tendon arthropathy.
--- NOTE | 2024-10-08 10:41 | MR_ITS ---
WS: [email or web address] MRI LUMBAR SPINE NONCONTRAST HISTORY: NUMBNESS OF R FOOT COMPARISON: None available. TECHNIQUE: Sagittal and axial multisequence imaging is submitted. Disc osteophyte disease in the cervical spine with mild contact on the ventral cord at C5-6 and C6-7. Mild anterior wedging of several midthoracic vertebral bodies. Normal lumbar alignment with no compression fractures or marrow edema. Disc spaces and vertebral body heights are well-preserved. Conus terminates normally at L1-2 disc level. L1-L2: Normal. L2-L3: Diffuse annular disc bulging with marked ligamentum flavum hypertrophy and facet arthritis. Facet joint arthritis encroaches upon the ventral thecal sac. Mild central, subarticular recess and foraminal stenosis. There is mild disc contact on the traversing L3 nerve roots. L3-L4: Diffuse annular disc bulging with severe ligamentum flavum and facet arthritis. Thecal sac is being deformed and if effacement of the CSF. Severe central and bilateral subarticular recess stenosis. Bilateral foraminal disc protrusions, LEFT greater than RIGHT. Moderate LEFT and mild RIGHT foraminal stenosis. L4-L5: Diffuse annular disc bulging with annular fissures. Severe ligamentum flavum and facet arthritis. Severe central, bilateral subarticular recess and moderate bilateral foraminal stenosis. Disc contacts the L4 and L5 nerve roots bilaterally. L5-S1: Diffuse annular disc bulging. Asymmetric disc bulging to the RIGHT. Mild osteophytic ridging. Disc contacts the S1 nerve roots, RIGHT greater than LEFT. Mild central and foraminal stenosis. Paravertebral soft tissues are negative. MR/MR lumbar spine wo con* [id number] IMPRESSION: 1. No acute fractures. 2. L3-4: Severe central and bilateral subarticular recess stenosis. Bilateral foraminal disc protrusions, LEFT greater than RIGHT resulting in moderate LEFT and mild RIGHT foraminal stenosis. 3. L4-5: Severe central, bilateral subarticular recess and moderate foraminal stenosis. There is contact on the L4 and L5 nerve roots. 4. L5-S1: Mild disc contact on the RIGHT S1 nerve root. 5. L2-3: Mild central, subarticular recess and foraminal stenosis. There is mi ld disc contact on the traversing L3 nerve roots. 6. Severe ligamentum flavum and facet joint arthropathy most significant at L3 -4 and L4-5.
--- NOTE | 2024-10-08 10:41 | XR_ITS ---
WS: [email or web address] XR shoulder LT min 2V* [id number] REASON FOR EXAM: R HAND WEAKNESS/L HAND WEAKNESS/HAND PARESTHESIA FINDINGS: No fracture or focal bone lesion. Moderate narrowing of the acromioclavicular joint space with moderate subchondral sclerosis and osteophytosis. The glenohumeral joint space is not optimally demonstrated however there appears to be mild narrowing. There is mild subchondral sclerosis of the glenoid and mild osteophytosis of the humeral head. There is moderate sclerosis and cystic change in the greater biceps tuberosity. XR/XR shoulder LT min 2V* [id number] IMPRESSION: Moderate osteoarthritis in the acromioclavicular joint. At least mild osteoarthritis in the glenohumeral joint. Moderate rotator cuff tendon arthropathy.
== END 2024-10-08 10:35 | disposition home or self-care (01) ==
PROVIDERS: PCP Nurse Practitioner; Visit Provider Nurse Practitioner
DX: R29.898 Other symptoms and signs involving the musculoskeletal system (principal); R20.2 Paresthesia of skin; R20.0 Anesthesia of skin; M19.012 Primary osteoarthritis, left shoulder; M25.712 Osteophyte, left shoulder; R93.7 Abnormal findings on diagnostic imaging of other parts of musculoskeletal system; M19.011 Primary osteoarthritis, right shoulder; M25.711 Osteophyte, right shoulder; M48.061 Spinal stenosis, lumbar region without neurogenic claudication; M51.26 Other intervertebral disc displacement, lumbar region; M24.28 Disorder of ligament, vertebrae; M47.896 Other spondylosis, lumbar region; M25.78 Osteophyte, vertebrae; M48.54XA Collapsed vertebra, not elsewhere classified, thoracic region, initial encounter for fracture; M51.369 Other intervertebral disc degeneration, lumbar region without mention of lumbar back pain or lower extremity pain; M51.A0 Intervertebral annulus fibrosus defect, lumbar region, unspecified size; M51.379 Other intervertebral disc degeneration, lumbosacral region without mention of lumbar back pain or lower extremity pain; M48.07 Spinal stenosis, lumbosacral region
CPT/HCPCS: 72148; 73030

== ENCOUNTER → 2024-10-28 12:31 | Outpatient (BNVA) | payer OTHER, SELFPAY | PROVIDERS: PCP Nurse Practitioner; Visit Provider Orthopaedic Surgery | DX: M54.50 Low back pain, unspecified (principal); M54.2 Cervicalgia; M48.062 Spinal stenosis, lumbar region with neurogenic claudication | CPT/HCPCS: 72110; 99203 ==

== ENCOUNTER 2024-11-19 13:07 | Outpatient (CLI) | payer OTHER, SELFPAY ==
--- NOTE | 2024-11-19 13:45 | MR_ITS ---
WS: [email or web address] MRI CERVICAL SPINE NONCONTRAST HISTORY: Neck Pain COMPARISON: None available. Technique: Multiplanar, multisequence noncontrast imaging of the cervical spine. Normal cervical alignment. Small amount of edema along the inferior endplate of C6. Disc spaces are mildly narrowed throughout the cervical spine. Signal within the cervical cord is normal. Visualized posterior fossa is unremarkable. Craniocervical junction, C1 and C2 relationship, odontoid process and soft tissues are normal. C2-C3: Central disc protrusion. Mild osteophytic ridging and bilateral foraminal osteophytes. Mild bilateral foraminal stenosis. C3-C4: Diffuse annular disc bulging with a central disc protrusion, facet arthritis. Moderate central and bilateral foraminal stenosis. C4-C5: Mild annular disc bulging with osteophytic ridging and facet arthritis. Mild central and moderate foraminal stenosis. C5-C6: Diffuse annular disc bulge with a central disc protrusion and osteophytic ridging. Moderate bilateral facet arthritis. Severe central and bilateral foraminal stenosis. Disc osteophyte contacts the ventral cord. C6-C7: Osteophytic ridging with annular disc bulging and facet arthritis. Severe central and bilateral foraminal stenosis. There is disc osteophyte contacting the ventral cord. C7-T1: Normal. Paraspinal soft tissue are normal. MR/MR cervical spin wo con* [id number] IMPRESSION: 1. Multilevel degenerative disc disease with osteophytosis and disc protrusion s. 2. C5-6 and C6-7: Severe central and bilateral foraminal stenosis due to disc, osteophyte and facet arthritis. 3. C2-3: Small central disc protrusion with mild foraminal stenosis. 4. C3-4: Moderate central and bilateral foraminal stenosis with a central disc protrusion. 5. C4-5: Mild central and moderate foraminal stenosis.
== END 2024-11-19 13:08 | disposition home or self-care (01) ==
PROVIDERS: PCP Nurse Practitioner; Visit Provider Orthopaedic Surgery
DX: M48.02 Spinal stenosis, cervical region (principal); M50.21 Other cervical disc displacement, high cervical region
CPT/HCPCS: 72141

== ENCOUNTER → 2024-11-27 07:32 | Outpatient (BNVA) | payer OTHER, SELFPAY | PROVIDERS: PCP Nurse Practitioner; Visit Provider Orthopaedic Surgery | DX: M48.02 Spinal stenosis, cervical region (principal); G99.2 Myelopathy in diseases classified elsewhere; Z09 Encounter for follow-up examination after completed treatment for conditions other than malignant neoplasm | CPT/HCPCS: 99214 ==

== ENCOUNTER → 2025-03-11 09:59 | Outpatient (BNVA) | payer OTHER, SELFPAY | PROVIDERS: PCP Nurse Practitioner; Visit Provider Physician Assistant | DX: M16.11 Unilateral primary osteoarthritis, right hip (principal) | CPT/HCPCS: 73502; 99214 ==

== ENCOUNTER → 2025-04-21 11:07 | Outpatient (BNVA) | payer OTHER, SELFPAY | PROVIDERS: PCP Nurse Practitioner; Visit Provider Student in an Organized Health Care Education/Training Program | DX: M16.11 Unilateral primary osteoarthritis, right hip (principal) | CPT/HCPCS: 99214 ==